=== PATIENT | female | born 1960 | race Caucasian/White ===

== ENCOUNTER 2020-03-11 12:11 | Outpatient (REF) | payer MEDICAID, SELFPAY ==
--- NOTE | 2020-03-11 12:26 | XR_ITS ---
EXAMINATION: XR HAND, LEFT CLINICAL INFORMATION: Pain in left hand COMPARISON: None TECHNIQUE: PA, lateral, and oblique views of the left hand. FINDINGS: No fracture or dislocation seen. There is deformity of the third metacarpal head with adjacent well-corticated ossific densities suggesting remote prior trauma. Mild radiocarpal joint space narrowing. There is a cyst in the mid scaphoid. XR/XR hand LT min 3V IMPRESSION: No acute osseous abnormality. Chronic appearing likely posttraumatic deformity of the third metacarpal head. Mild degenerative changes.
[2020-03-11 15:23] LABS: Anion Gap 12 (12-20); Blood Urea Nitrogen 19 mg/dL (9-16); Calcium 9.6 mg/dL (8.4-10.2); Carbon Dioxide 32 mmol/L (22-29); Chloride 100 mmol/L (96-108); Cholesterol 182 mg/dL; Estimated Glomerular Filt Rate 57; Glucose Random 88 mg/dL (60-115); HDL Cholesterol 70 mg/dL; LDL Cholesterol Calculated 90 mg/dl; Potassium 4.4 mmol/l (3.3-5.1); Sodium 140 mmol/L (135-145); Triglycerides 112 mg/dL
[2020-03-11 15:47] LABS: TSH reflex Free T4 2.49 mIU/mL (0.32-4.0)
== END 2020-03-11 12:12 | disposition home or self-care (01) ==
LOC: HO.US 12:11
PROVIDERS: PCP Nurse Practitioner; Visit Provider Emergency Medicine
DX: E03.9 Hypothyroidism, unspecified (principal); E78.2 Mixed hyperlipidemia; I10 Essential (primary) hypertension; M79.89 Other specified soft tissue disorders; M79.642 Pain in left hand
CPT/HCPCS: 73130; 80048; 80061; 84443

== ENCOUNTER → 2020-03-18 12:37 | Outpatient (BNVA) | payer MEDICAID, SELFPAY | PROVIDERS: PCP Nurse Practitioner Family; Visit Provider Internal Medicine Cardiovascular Disease | DX: I48.0 Paroxysmal atrial fibrillation (principal); I10 Essential (primary) hypertension; E05.90 Thyrotoxicosis, unspecified without thyrotoxic crisis or storm; Z79.899 Other long term (current) drug therapy | CPT/HCPCS: 93005; 99212 ==

== ENCOUNTER 2020-03-20 13:04 | Outpatient (REF) | payer MEDICAID, SELFPAY ==
--- NOTE | 2020-03-20 | US_ITS ---
EXAMINATION: US VENOUS ULTRASOUND WITH DOPPLER LOWER EXTREMITY, RIGHT CLINICAL INFORMATION: Right lower extremity swelling, fullness. Assess for occult DVT. COMPARISON: Soft tissue ultrasound right lower extremity 12/25/2019. TECHNIQUE: Ultrasound of the deep veins is performed from the hip to the calf with compression sonography and color and pulse Doppler assessment. Spectral analysis with color-flow imaging is performed. FINDINGS: There is normal venous compression and respiratory variation and augmented flow. The visualized common femoral vein, superficial femoral vein, profunda femoral vein, popliteal vein, and the trifurcation region shows no evidence of deep venous thrombosis. No popliteal fossa cyst demonstrated. No visible soft tissue mass. US/US venous duplex LE RT IMPRESSION: No DVT demonstrated in the right lower extremity.
== END 2020-03-20 13:05 | disposition home or self-care (01) ==
LOC: HO.US 13:04
DX: R22.41 Localized swelling, mass and lump, right lower limb (principal)
CPT/HCPCS: 93971

== ENCOUNTER 2020-03-26 10:27 | Outpatient (REF) | payer MEDICAID, SELFPAY ==
--- NOTE | 2020-03-26 10:31 | MM_ITS ---
EXAMINATION: MM SCREENING DIGITAL BREAST TOMOSYNTHESIS, BILATERAL CLINICAL INFORMATION: Screening. Asymptomatic. The lifetime risk of breast cancer based on the Tyrer-Cuzick Model is 8%. COMPARISON: Mammography: 03/08/2019, 02/14/2018, 02/11/2017 TECHNIQUE: Digital breast tomosynthesis is performed in both the craniocaudal and mediolateral oblique views along with computer-aided detection (CAD). Synthesized 2D images are generated from the tomosynthesis. FINDINGS: There are scattered areas of fibroglandular density (ACR BI-RADS breast composition Category b). There are no significant masses, abnormal calcifications, or other abnormalities. There is chronic bilateral nipple retraction similar to prior studies. No significant changes. MM/MM tomosynthesis screening BI IMPRESSION: No mammographic evidence of malignancy. ASSESSMENT: BI-RADS 2: Benign RECOMMENDATION: Routine annual mammography screening. This patient's information was entered into a reminder system with a target due date for their next mammogram.
== END 2020-03-26 10:28 | disposition home or self-care (01) ==
LOC: HO.MAMMO 10:27
PROVIDERS: Visit Provider Emergency Medicine
DX: Z12.31 Encounter for screening mammogram for malignant neoplasm of breast (principal)
CPT/HCPCS: 77063; 77067

== ENCOUNTER 2020-07-14 10:52 | Outpatient (REF) | payer MEDICAID, SELFPAY ==
--- NOTE | ~2020-07-14 | XR_ITS ---
EXAMINATION: XR KNEE, RIGHT CLINICAL INFORMATION: Pain COMPARISON: None TECHNIQUE: Four views of the right knee. FINDINGS: Bone alignment is normal. No fracture or dislocation is seen. There is a severe arthritis at the medial femoral tibial and patellofemoral joints with joint space narrowing and osteophyte formation. There is question of posterior fabella versus ossified intra-articular loose body. There is no suprapatellar joint effusion. XR/XR knee RT 4V IMPRESSION: Severe arthritis at the medial femoral tibial and patellofemoral joints.
== END 2020-07-14 10:53 | disposition home or self-care (01) ==
LOC: HO.XRAY 10:52
PROVIDERS: PCP Nurse Practitioner; Visit Provider Emergency Medicine
DX: M25.561 Pain in right knee (principal)
CPT/HCPCS: 73564

== ENCOUNTER → 2020-08-27 08:34 | Outpatient (BNVA) | payer MEDICAID, SELFPAY | PROVIDERS: PCP Nurse Practitioner Family; Visit Provider Nurse Practitioner Gerontology ==

== ENCOUNTER 2021-03-05 11:49 | Outpatient (REF) | payer MEDICAID, SELFPAY ==
--- NOTE | ~2021-03-05 | US_ITS ---
EXAMINATION: US RETROPERITONEAL LIMITED (RENAL ONLY) CLINICAL INFORMATION: Hematuria. Flank pain. COMPARISON: Renal ultrasound 11/21/2018. TECHNIQUE: Real-time imaging of the kidneys. FINDINGS: RIGHT KIDNEY: 10.0 x 4.3 x 5.4 cm (SAG x AP x TRV). The kidney is normal in size, contour, and echogenicity. Renal cortical thickness is normal. No calculi or focal parenchymal lesions. No hydronephrosis. LEFT KIDNEY: 9.7 x 4.6 x 4.8 cm (SAG x AP x TRV). The kidney is normal in size, contour, and echogenicity. Renal cortical thickness is normal. No calculi or focal parenchymal lesions. No hydronephrosis. US/US renal BI IMPRESSION: Unremarkable renal ultrasound..
== END 2021-03-05 11:50 | disposition home or self-care (01) ==
LOC: HO.US 11:49
PROVIDERS: PCP Nurse Practitioner; Visit Provider Nurse Practitioner
DX: R10.9 Unspecified abdominal pain (principal)
CPT/HCPCS: 76775

== ENCOUNTER 2021-03-20 09:35 | Outpatient (REF) | payer MEDICAID, SELFPAY ==
--- NOTE | ~2021-03-20 | XR_ITS ---
EXAMINATION: X-RAY KNEE STANDING BILATERAL X-RAY RIGHT KNEE LATERAL AND SUNRISE VIEW CLINICAL INFORMATION: Pain. COMPARISON: Radiograph of the right knee dated from 07/14/2020. TECHNIQUE: AP standing views of both knees. Lateral and sunrise views of the right knee. FINDINGS: No evidence of acute fractures or malalignment. There are severe tricompartmental degenerative changes in the right knee, more apparent in the medial and patellofemoral compartments manifested by joint space narrowing, subchondral and sclerosis and osteophytes. These are unchanged when compared to June. There are moderate degenerative changes in the medial compartment of the left knee. Evaluation of the patellofemoral compartment of the left knee is suboptimal in the absence of a lateral view of this knee. Small right joint effusion. XR/XR knee standing BI IMPRESSION: No acute fractures or malalignment. Severe osteoarthritis of the right knee. Moderate osteoarthritis of the left knee. Small right joint effusion.
--- NOTE | ~2021-03-20 | XR_ITS ---
EXAMINATION: X-RAY KNEE STANDING BILATERAL X-RAY RIGHT KNEE LATERAL AND SUNRISE VIEW CLINICAL INFORMATION: Pain. COMPARISON: Radiograph of the right knee dated from 07/14/2020. TECHNIQUE: AP standing views of both knees. Lateral and sunrise views of the right knee. FINDINGS: No evidence of acute fractures or malalignment. There are severe tricompartmental degenerative changes in the right knee, more apparent in the medial and patellofemoral compartments manifested by joint space narrowing, subchondral and sclerosis and osteophytes. These are unchanged when compared to June. There are moderate degenerative changes in the medial compartment of the left knee. Evaluation of the patellofemoral compartment of the left knee is suboptimal in the absence of a lateral view of this knee. Small right joint effusion. XR/XR knee RT 2V IMPRESSION: No acute fractures or malalignment. Severe osteoarthritis of the right knee. Moderate osteoarthritis of the left knee. Small right joint effusion.
== END 2021-03-20 09:36 | disposition home or self-care (01) ==
LOC: HO.HOSX 09:35
PROVIDERS: Visit Provider Orthopaedic Surgery
DX: M17.0 Bilateral primary osteoarthritis of knee (principal)
CPT/HCPCS: 20610; 73560; 73565; 99202; J1100

== ENCOUNTER → 2021-07-03 09:10 | Outpatient (BNVA) | payer MEDICAID, SELFPAY | PROVIDERS: PCP Nurse Practitioner; Visit Provider Orthopaedic Surgery | DX: M17.0 Bilateral primary osteoarthritis of knee (principal) | CPT/HCPCS: 20610; 99212; J1100 ==

== ENCOUNTER 2021-07-16 11:28 | Outpatient (REF) | payer MEDICAID, SELFPAY ==
--- NOTE | ~2021-07-16 | MM_ITS ---
EXAMINATION: MM SCREENING DIGITAL BREAST TOMOSYNTHESIS, BILATERAL CLINICAL INFORMATION: Screening. Asymptomatic. The lifetime risk of breast cancer based on the Tyrer-Cuzick Model is 9%. COMPARISON: Mammography: 03/26/2020, 03/08/2019, 02/14/2018 TECHNIQUE: Digital breast tomosynthesis is performed in both the craniocaudal and mediolateral oblique views along with computer-aided detection (CAD). Synthesized 2D images are generated from the tomosynthesis. Additional left CC and additional bilateral MLO views are provided. FINDINGS: The breasts are almost entirely fatty (ACR BI-RADS breast composition Category a). There are no significant masses, abnormal calcifications, or other abnormalities. Background stomal markings are stable. The axilla are unremarkable. There is chronic bilateral nipple retraction similar to prior studies. MM/MM tomosynthesis screening BI IMPRESSION: No mammographic evidence of malignancy. ASSESSMENT: BI-RADS 2: Benign RECOMMENDATION: Routine annual mammography screening. This patient's information was entered into a reminder system with a target due date for their next mammogram.
== END 2021-07-16 11:29 | disposition home or self-care (01) ==
LOC: HO.MAMMO 11:28
PROVIDERS: PCP Nurse Practitioner; Visit Provider Nurse Practitioner
DX: Z12.31 Encounter for screening mammogram for malignant neoplasm of breast (principal)
CPT/HCPCS: 77063; 77067

== ENCOUNTER 2022-04-29 14:21 | Outpatient (REF) | payer MEDICAID, SELFPAY ==
--- NOTE | ~2022-04-29 | CT_ITS ---
EXAMINATION: CT CHEST WITHOUT CONTRAST CLINICAL INFORMATION: Pulmonary nodule. COMPARISON: None TECHNIQUE: Multidetector volumetric CT imaging of the chest was done. Axial MIP volume rendering provided. Sagittal and coronal reformatted images were obtained. This CT examination was performed using dose optimization techniques as appropriate, variously including the following: *Automated exposure control. *Adjustment of mA and/or kV according to patient size (this includes techniques or standardized protocols for targeted exams where dose is matched to indication/reason for exam; i.e. extremities or head). *Use of iterative reconstruction technique. DLP: 158 mGy-cm FINDINGS: WEB ART DIRECTOR: Degenerative changes in the lumbosacral spine. LUNGS: Some small pulmonary nodules are present with a 5 mm pleural-based right upper lobe nodule (5:95) and a 4 mm pleural-based left lower lobe nodule posteriorly (5:423) as well as a 3 mm pleural-based nodule anteriorly (5:422). No other masses are seen. No infiltrates are seen. There is no evidence of COPD. MEDIASTINUM: Heart size is normal. No mediastinal or hilar lymphadenopathy is seen. CORONARY ARTERY CALCIFICATION: None visualized on this study. PLEURA: There is no pleural effusion. No pleural mass or thickening. AXILLA: No lymphadenopathy. UPPER ABDOMEN: Unremarkable. OSSEOUS STRUCTURES: Unremarkable. Mild degenerative changes are noted in the spine. CT/CT chest wo IV con IMPRESSION: Small pulmonary nodules as described above, the largest is 5 mm. 2017 Fleischner Society Recommendations for Lung Nodule(s): Follow-Up based on size (average of long- and short-axis diameters). Use most suspicious nodule for followup. Multiple Solid lung nodules < 6 mm: Follow up management based on most suspicious nodule. In a low-risk patient, no routine follow-up imaging is recommended. In a high-risk patient, a non-contrast Chest CT at 12 months is optional. If performed and the nodule is stable at 12 months, no further follow-up is recommended. These guidelines do not apply to patients younger than 35 years, immunocompromised patients, and patients with cancer. F/u in patients with significant comorbidities as clinically warranted. For lung cancer screening, adhere to Lung-RADS guidelines. Reference: Radiology. 2017 Oct; 284(1):228-243 Fleischner guidelines were followed.
== END 2022-04-29 14:22 | disposition home or self-care (01) ==
LOC: HO.CT 14:21
PROVIDERS: Visit Provider Registered Nurse
DX: R91.1 Solitary pulmonary nodule (principal)
CPT/HCPCS: 71250

== ENCOUNTER → 2022-07-06 13:34 | Outpatient (BNVA) | payer MEDICAID, SELFPAY | PROVIDERS: PCP Registered Nurse; Visit Provider Hospitalist | DX: J45.30 Mild persistent asthma, uncomplicated (principal); R91.8 Other nonspecific abnormal finding of lung field; Z79.899 Other long term (current) drug therapy | CPT/HCPCS: 99202 ==

== ENCOUNTER 2022-07-19 14:23 | Outpatient (REF) | payer MEDICAID, SELFPAY ==
--- NOTE | ~2022-07-19 | MM_ITS ---
EXAMINATION: MM SCREENING DIGITAL BREAST TOMOSYNTHESIS, BILATERAL CLINICAL INFORMATION: Screening. Asymptomatic. The lifetime risk of breast cancer based on the Tyrer-Cuzick Model is 10%. COMPARISON: Mammography: 07/16/2021, 03/26/2020, 03/08/2019 TECHNIQUE: Digital breast tomosynthesis is performed in both the craniocaudal and mediolateral oblique views along with computer-aided detection (CAD). Synthesized 2D images are generated from the tomosynthesis. Additional left MLO view is provided. FINDINGS: The breasts are almost entirely fatty (ACR BI-RADS breast composition Category a). Background stromal and fibroglandular densities are stable. No interval mass or architectural abnormality or developing density. There are scattered bilateral ductal secretory and some vascular calcifications. The axilla are unremarkable. There is chronic bilateral mild nipple retraction. MM/MM tomosynthesis screening BI IMPRESSION: No mammographic evidence of malignancy. ASSESSMENT: BI-RADS 2: Benign RECOMMENDATION: Routine annual mammography screening. This patient's information was entered into a reminder system with a target due date for their next mammogram.
== END 2022-07-19 14:24 | disposition home or self-care (01) ==
LOC: HO.MAMMO 14:23
PROVIDERS: PCP Registered Nurse; Visit Provider Registered Nurse
DX: Z12.31 Encounter for screening mammogram for malignant neoplasm of breast (principal)
CPT/HCPCS: 77063; 77067

== ENCOUNTER 2023-02-24 14:06 | Outpatient (REF) | payer MEDICAID, SELFPAY ==
[2023-02-24 15:42] LABS: D Dimer High Sensitivity < 150 NG/ML
[2023-02-24 15:57] LABS: Alanine Aminotransferase 21 U/L (0-31); Albumin Level 4.3 g/dL (3.5-5.0); Alkaline Phosphatase 120 U/L (39-117); Anion Gap 14 (12-20); Aspartate Amino Transferase 18 U/L (5-31); Bilirubin Total 0.5 mg/dL (0.0-1.0); Blood Urea Nitrogen 15 mg/dL (9-16); Calcium 9.7 mg/dL (8.4-10.2); Carbon Dioxide 28 mmol/L (22-29); Chloride 102 mmol/L (96-108); Estimated Glomerular Filt Rate 57; Glucose Random 90 mg/dL (60-115); Potassium 3.8 mmol/L (3.3-5.1); Sodium 140 mmol/L (135-145); Total Protein 7.7 g/dL (6.5-8.0)
[2023-02-24 16:13] LABS: TSH reflex Free T4 0.78 uIU/mL (0.32-4.0)
== END 2023-02-24 14:07 | disposition home or self-care (01) ==
LOC: HO.LAB 14:06
PROVIDERS: PCP Registered Nurse; Visit Provider Registered Nurse
DX: R06.02 Shortness of breath (principal); E03.8 Other specified hypothyroidism; R00.2 Palpitations; Z00.00 Encounter for general adult medical examination without abnormal findings
CPT/HCPCS: 36415; 80053; 84443; 85379; 93005; 99212

== ENCOUNTER 2023-02-24 14:24 | Outpatient (AMB) | payer MEDICAID, SELFPAY ==
--- NOTE | 2023-02-24 14:38 | MHC.OFFVIS ---
Intake Vital Signs 02/24/23 14:39 Height 4 ft 10 in Weight 187 lb 6.287 oz BMI 39.2 BP 124/76 Blood Pressure Location Lt brachial Position Sitting Pulse 74 Intake Visit Reasons: follow up Intake Note: Overdue follow-up was in the ED palpation nausea vomiting 02/02 Electronic Integrated Systems Mechanic Required: No Allergies ENVIRONMENTAL Allergy (Unknown, Uncoded 07/06/22 13:41) ITCHY EYES Medication List - Last Reconciled 02/24/23 by Fabrizio Swift MD albuterol sulfate 90 mcg/actuation 2 puffs inhalation Q6H PRN albuterol sulfate 5 mg inhalation Q6H amlodipine-valsartan 5-160 mg 1 tab PO DAILY atorvastatin 40 mg PO BEDTIME bupropion HCl 300 mg PO QAM calcium citrate 200 mg PO DAILY celecoxib 200 mg PO DAILY cetirizine 10 mg PO DAILY cholecalciferol (vitamin D3) 25 mcg PO DAILY fluticasone propionate 100 mcg/actuation (Flovent Diskus) 1 inh inhalation BID levothyroxine 137 mcg PO DAILY metoprolol succinate ER 50 mg PO DAILY omeprazole 20 mg PO DAILY ondansetron HCl 4 mg PO Q8H trazodone 100 mg PO BEDTIME PRN HPI HPI Comments History of Present Illness Details Nazia comes after a long gap. Patient comes for urgent visit as she recently started having symptoms of palpitation. She had recently presented to [facility] with 2 days of palpitation followed by 1 day of dizziness and vomiting. She subsequently was seen in [facility] ED and then sent home. No obvious abnormalities were found. Patient since then has had no recurrent palpitations. She is concerned about recurrent atrial fibrillation. She is currently taking a blood pressure medications. She says she has not seen a primary care physician a long time. [facility] Medical History Pulmonary nodules Asthma Postablative hypothyroidism Osteopenia Graves disease Paroxysmal atrial fibrillation HTN (hypertension) Hyperlipidemia Obesity Surgical History Hx of mammogram Family History Father No problems noted. Mother Diabetes Social History Household Members: None Current occupational status: disabled Review of Systems Const Denies chills, Denies fatigue, Denies fever(s), Denies frequent falls, Denies weakness, Denies weight gain and Denies weight loss ENT Denies dizziness Card Denies chest pain, Denies leg edema, Denies lightheadedness, Denies palpitations, Denies dyspnea, Denies dyspnea on exertion, Denies orthopnea and Denies other (loss of consciousness) Resp Denies cough, Denies dyspnea and Denies dyspnea on exertion GI Denies hematochezia and Denies change in stool character Musc Denies abnormal gait, Denies muscle weakness, Denies numbness, Denies radiating pain into limb and Denies tingling Neuro Denies abnormal gait, Denies dizziness, Denies frequent falls, Denies numbness, Denies tingling and Denies weakness Endo Denies fatigue and Denies palpitations Physical Exam Vital Signs: Last Vital Signs Pulse 74 02/24/23 14:39 BP 124/76 02/24/23 14:39 BMI result Body Mass Index 39.2 Const General: cooperative, comfortable, no acute distress, alert and awake Nutritional Appearance: obese Orientation/consciousness: patient oriented x3 Limitations: no limitations HEENT Head: Yes normal to inspection, Yes normocephalic and Yes atraumatic Eyes General: appearance normal, both eyes and all related structures Neck Neck: Yes trachea midline, Yes supple and Yes no JVD Chest Chest palpation & inspection: normal inspection of the chest Resp Effort & Inspection: normal respiratory effort Auscultation: clear to auscultation bilaterally Cardio Palpation: normal PMI Rate: regular rate Rhythm: regular rhythm Heart sounds: S1 normal heart sound present and S2 normal heart sound present GI Inspection: Yes normal to inspection Skin General skin exam: no rashes or lesions noted and dry skin Neuro General: patient oriented x3 and no focal motor deficits Extrem General: Yes no clubbing, cyanosis or edema Psych Appearance: grossly normal Office Procedures EKG Details: EKG shows normal sinus rhythm with nonspecific ST abnormality at 74 beats per minute [id number], Complete Assessment & Plan Assessment & Plan (1) Palpitations: Code(s): R00.2 - Palpitations Plan: Patient with recent symptoms of palpitation which are more suggestive of extra systoles rather than atrial fibrillation. However she is very will bothered about it given her prior history of atrial fibrillation although this was in the setting of thyrotoxicosis. Since then her thyroid is been within normal limits as she has done well. She is currently on metoprolol therapy. Will obtain a 30 day event monitor to assess further for arrhythmias and presence of atrial fibrillation as this may change her treatment options. Will also obtain echocardiogram to evaluate for LV structure, size and biatrial chamber size. Will follow up in the clinic in 2 months time, sooner p.r.n.. Thank you for allowing me to partake in her care Medications: Changed From levothyroxine 112 mcg PO DAILY 30 tabs 0RF To levothyroxine 137 mcg PO DAILY Coding Level of Care Code Est Pt Level 3 (65320) Diagnoses Palpitations R00.2 CPT Codes EKG - CPT: 60651-[id number], Complete ([id number])
[2023-02-24 14:39] VITALS: BP 124/76; PULSE 74; BMI 39.2
== END 2023-02-24 15:04 | disposition home or self-care (01) ==
PROVIDERS: PCP Registered Nurse; Visit Provider Internal Medicine Cardiovascular Disease
DX: R00.2 Palpitations (principal)
CPT/HCPCS: 93010; 99213

== ENCOUNTER → 2023-03-21 13:26 | Outpatient (REF) | payer MEDICAID, SELFPAY ==
--- NOTE | 2023-03-21 13:28 | CA_ITS ---
Transthoracic Echocardiogram Patient (Last, First, Middle): Nazia Garcia M Gender: Female Date of : 1960 Age: 62 Procedure Date: 03/21/2023 Procedure Type: Transthoracic Echocardiogram Location: OP Height: 147.32 cm Weight: 81.65 kg BSA: 1.74 m2 Heart Rate: bpm BP: 118 / 70 mmHg Concrete Craftsman: CORY Referring MD: Fabrizio Swift MD Symptoms: R00.2 - Palpitations Study Quality: Adequate ECG Rhythm: Sinus Conclusions: - The left ventricular systolic function is normal. The calculated ejection fraction is 64% by biplane method. - No obvious valvular pathology seen on this study. Findings Left Ventricle Normal left ventricular cavity size. There is normal left ventricular wall thickness. The left ventricular systolic function is normal. The calculated ejection fraction is 64% by biplane method. There is no evidence of regional wall motion abnormalities. LV peak GLS -16%. Right Ventricle Normal right ventricular cavity size and systolic function. Atria The left atrium is mildly dilated. The right atrium is normal in size. Aortic Valve There is a normal trileaflet aortic valve. There is no aortic valve stenosis. There is no aortic valve regurgitation. Mitral Valve The mitral valve appears normal. There is trace mitral valve regurgitation. There is no mitral valve stenosis. Pulmonic Valve The pulmonic valve is likely normal. Tricuspid Valve There is trace tricuspid valve regurgitation. There is no evidence of pulmonary hypertension. Great Vessels The asc aorta and aortic arch are normal in size. Small plaque is seen in the sino tubular ridge. Venous The inferior vena cava is normal in size and collapses greater than 50% with inspiration. Pericardium/Pleural There is no evidence of pericardial effusion. Prior Study Comparison No significant change compared to prior study dated: 12/23/2015. Recommendations, Care & Conclusions No obvious valvular pathology seen on this study. Measurements 2D Linear Measurements IVSd: 0.78 0.6-0.9/0.6-1.0 cm LVIDd: 4.58 3.9-5.3/4.2-5.9 cm LVIDd Index: 2.63 2.4-3.2/2.2-3.1 cm/m2 LVIDs: 3.32 2.0-3.6 cm LVPWd: 0.78 0.7-1.1 cm LA Diam: 3.60 2.7-3.8/3.0-4.0 cm LAIDs Index: 2.07 1.5-2.3 cm/m2 LV Mass: 140.82 67-162/88-224 g LV Mass Index: 80.93 43-95/49-115 g/m2 LVOT Diam: 1.90 3.0+(-)1.3 cm 2D Systolic Function EF 4C: 62.00 >55% EF 2C: 64.90 >55% EF BiP: 64.40 >55% Mitral Valve MV Pk E: 0.55 MV PK A: 0.75 MV Decel Time: 297.00 E/A: 0.70 E'Lateral: 12.00 E'Medial: 6.74 E/E' Med: 8.10 E/E' Lat: 4.60 PHT: 87.00 MVA PHT: 2.53 Decel [place]: 1.85 Aortic Valve AoV Pk Manny: 1.59 AoV Mn Manny: 1.04 AoV VTI: 0.37 AoV Pk Grad: 10.00 Aov Mn Grad: 5.00 JOSÉ Cont.VTI: 2.27 LVOT LVOT Pk Manny: 1.24 LVOT Mn Manny: 0.83 LVOT VTI: 0.29 LVOT Pk Grad: 6.00 LVOT Mn Grad: 3.00 LVOT Diam: 1.90 LVOT Area: 2.84 Diastolic Function MV Pk E: 0.55 MV Pk A: 0.75 E/A: 0.70 E'Medial: 6.74 E/E' Med: 8.10 E' Laterial: 12.00 E/E' Lat: 4.60 Right Ventricle TAPSE (mm): 2.12 TVS' Manny: 9.90 Tricuspid Valve TR Pk Manny: 2.38 TR Pk Grad: 23.00 RA Press: 3.00 RVSP: 26.00 Great Vessels Aorta Sinus of Valsalva: 2.71 2.0-3.[address] [place]: 2.02 1.7-3.4 cm Ao Asc: 3.00 2.1-3.4 cm Ao Arch: 2.80 Updated in Other Vendor System with Status of Final Jarek Fuentes MD electronically signed on 03/21/2023 4:14:37 PM with status of Final
== END ==
LOC: HO.CARD 13:26
PROVIDERS: PCP Registered Nurse; Visit Provider Internal Medicine Cardiovascular Disease
DX: R00.2 Palpitations (principal)
CPT/HCPCS: 93306; 93356

== ENCOUNTER → 2023-03-21 13:26 | Outpatient (REF) | payer MEDICAID, SELFPAY | LOC: HO.CARD 13:26 | PROVIDERS: PCP Registered Nurse; Visit Provider Internal Medicine Cardiovascular Disease | DX: Z13.89 Encounter for screening for other disorder (principal) ==

== ENCOUNTER → 2023-03-21 13:28 | Outpatient (BNV) | payer MEDICAID, SELFPAY | PROVIDERS: PCP Registered Nurse; Visit Provider Internal Medicine | DX: R94.31 Abnormal electrocardiogram [ECG] [EKG] (principal) | CPT/HCPCS: 93306 ==

== ENCOUNTER → 2023-03-29 12:12 | Outpatient (REF) | payer MEDICAID, SELFPAY ==
--- NOTE | 2023-03-29 12:15 | HM_ITS ---
* Total monitoring time 7 days. * Underlying rhythm is sinus. Average ventricular rate 62/min. Range 52- 94/Min. * Rare supraventricular and ventricular ectopy. * No sustained arrhythmias. * No significant pauses or AV blocks. * No patient markers or events in diary. MTDD
== END ==
LOC: HO.CARD 12:12
PROVIDERS: PCP Registered Nurse; Visit Provider Internal Medicine Cardiovascular Disease
DX: R00.2 Palpitations (principal)
CPT/HCPCS: 93242

== ENCOUNTER → 2023-03-29 12:15 | Outpatient (BNV) | payer MEDICAID, SELFPAY | PROVIDERS: PCP Registered Nurse; Visit Provider Internal Medicine | DX: R00.2 Palpitations (principal) | CPT/HCPCS: 93244 ==

== ENCOUNTER 2023-04-14 12:54 | Outpatient (REF) | payer MEDICAID, SELFPAY ==
--- NOTE | ~2023-04-14 | CT_ITS ---
EXAMINATION: CT CHEST WITHOUT CONTRAST CLINICAL INFORMATION: Other nonspecific abnormal finding of lung field COMPARISON: CT chest 04/29/2022. TECHNIQUE: Multidetector volumetric CT imaging of the chest was done. Axial MIP volume rendering provided. Sagittal and coronal reformatted images were obtained. This CT examination was performed using dose optimization techniques as appropriate, variously including the following: *Automated exposure control. *Adjustment of mA and/or kV according to patient size (this includes techniques or standardized protocols for targeted exams where dose is matched to indication/reason for exam; i.e. extremities or head). *Use of iterative reconstruction technique. DLP: 146 mGy-cm FINDINGS: SYSTEM TRAINER: Degenerative changes in the lumbosacral spine. LUNGS: Some predominantly pleural-based pulmonary nodules are again seen with the largest a 5 mm pleural-based right upper lobe nodule (5:328 compare prior 5:295) and a 4 mm pleural-based left lower lobe nodule posteriorly (5:441 compare prior 5:423) as well as a 3 mm pleural-based left lower lobe nodule anteriorly (5:458 compare prior 5:422). A few other even smaller nodule are seen that are unchanged. No infiltrates are seen. There is no evidence of COPD. MEDIASTINUM: Heart size is normal. No mediastinal or hilar lymphadenopathy is seen. CORONARY ARTERY CALCIFICATION: None visualized on this study. PLEURA: There is no pleural effusion. No pleural mass or thickening. AXILLA: No lymphadenopathy. UPPER ABDOMEN: Unremarkable. OSSEOUS STRUCTURES: Unremarkable. Mild degenerative changes are noted in the spine. CT/CT chest wo IV con IMPRESSION: 1. Small pulmonary nodules are unchanged. No new lung nodules are seen. 2. No evidence of COPD. 3. Degenerative changes in the spine. 4. Lung RADS category: 2. Reference: Radiology. 2017 Oct; 284(1):228-243 Fleischner guidelines were followed.
== END 2023-04-14 12:55 | disposition home or self-care (01) ==
LOC: HO.CT 12:54
PROVIDERS: PCP Registered Nurse; Visit Provider Hospitalist
DX: R91.8 Other nonspecific abnormal finding of lung field (principal)
CPT/HCPCS: 71250

== ENCOUNTER 2023-05-03 13:56 | Outpatient (AMB) | payer MEDICAID, SELFPAY ==
--- NOTE | 2023-05-03 14:37 | A.OFFVIS_ITS ---
Intake Vital Signs 05/03/23 14:38 Height 4 ft 10 in Weight 188 lb 11.451 oz BMI 39.4 BP 110/60 Blood Pressure Location Lt brachial Position Sitting Pulse 64 Pulse Source Pulse Oximeter Intake Visit Reasons: 2M Monitor & Echo (NS)/Confirmed Intake Note: 2 mnth f/up pt its feeling fine Technical Project Lead Required: No Accompanied by: Self / Same As Patient Allergies ENVIRONMENTAL Allergy (Unknown, Uncoded 07/06/22 13:41) ITCHY EYES Medication List - Last Reconciled 05/03/23 by Jenn Escudero, [employer] VP-C albuterol sulfate 90 mcg/actuation 2 puffs inhalation Q6H PRN albuterol sulfate 5 mg inhalation Q6H amlodipine-valsartan 5-160 mg 1 tab PO DAILY atorvastatin 40 mg PO BEDTIME bupropion HCl 300 mg PO QAM calcium citrate 200 mg PO DAILY celecoxib 200 mg PO DAILY cetirizine 10 mg PO DAILY cholecalciferol (vitamin D3) 25 mcg PO DAILY fluticasone propionate 100 mcg/actuation (Flovent Diskus) 1 inh inhalation BID levothyroxine 137 mcg PO DAILY metoprolol succinate ER 50 mg PO DAILY omeprazole 20 mg PO DAILY ondansetron HCl 4 mg PO Q8H trazodone 100 mg PO BEDTIME PRN HPI 2M Monitor & Echo (NS)/Confirmed HPI Details Shasha is a 62-year-old female with past medical history of hypertension, hyperlipidemia, atrial fibrillation during thyrotoxicosis who was recently reported heart palpitations and underwent a echocardiogram and Holter monitor and now presents for follow-up. Today she reports that overall her palpitations have lessened since last visit. She will have intermittent episodes where her heart is skipping beats. She tells me she was under high stress with the loss of her father and her sister. She is emotionally feeling better at this time. She denies any chest discomfort at rest or with activity. No shortness of breath, presyncope, syncope, PND, orthopnea or edema. Plans to lose weight over the next year. [facility] Medical History Pulmonary nodules Asthma Postablative hypothyroidism Osteopenia Graves disease Paroxysmal atrial fibrillation HTN (hypertension) Hyperlipidemia Obesity Surgical History Hx of mammogram Family History Father No problems noted. Mother Diabetes Social History Household Members: None Current occupational status: disabled Review of Systems Const All systems reviewed & are unremarkable except as noted in HPI and below Denies chills, Denies fever(s), Denies frequent falls, Denies weakness, Denies weight gain and Denies weight loss ENT Denies dizziness Card Details: less heart palpitations Denies chest pain, Denies leg edema, Denies lightheadedness, Denies palpitations, Denies dyspnea and Denies dyspnea on exertion Resp Denies cough, Denies dyspnea and Denies dyspnea on exertion GI Denies hematochezia Musc Denies abnormal gait, Denies muscle weakness, Denies numbness, Denies radiating pain into limb and Denies tingling Neuro Denies abnormal gait, Denies dizziness, Denies frequent falls, Denies numbness, Denies tingling and Denies weakness Endo Denies palpitations Physical Exam Vital Signs: Last Vital Signs Pulse 64 05/03/23 14:38 BP 110/60 05/03/23 14:38 BMI result Body Mass Index 39.4 Const General: cooperative, healthy appearing, comfortable and no acute distress Orientation/consciousness: patient oriented x3 Neck Neck: Yes normal visual inspection and Yes no JVD Resp Effort & Inspection: normal respiratory effort Auscultation: clear to auscultation bilaterally, no crackles, no rales, no rhonchi and no wheezes Cardio Jugular venous distension: no JVD Rate: regular rate Rhythm: regular rhythm Heart sounds: S1 normal heart sound present, S2 normal heart sound present, no murmurs and no rubs Neuro General: patient oriented x3 Extrem General: Yes normal to inspection Psych Appearance: grossly normal Mental Status: mental status grossly normal Speech and movement: Normal speech and movement present Office Procedures Cardiac Device Check Cardiac Device Check Details: entered in error - DO NOT BILL Additional procedure code (CPT) needed Assessment & Plan Assessment & Plan (1) Palpitations: Code(s): R00.2 - Palpitations Plan: Report of recent heart palpitations, skipping, causing her concern. History of having atrial fibrillation in the setting of thyroid toxicosis. No documented recurrent atrial fibrillation since that time. Labs done 02/24/2023 showed TSH 0.78. EKG done on last visit 02/24/2023 showing sinus rhythm with nonspecific ST abnormality, rate 74. Echocardiogram done 03/21/2023 showing EF 64%, no regional wall motion abnormalities or valve abnormalities. Holter monitor done on 03/29/2023 for 7 days shows sinus rhythm with average heart rate 62, heart rate range 52 to 94, rare SVE. All test results reviewed with her. At this point she reports her palpitations have lessened and if she is feeling better overall. Offered reassurance there is no atrial fibrillation. No med changes made. Continue metoprolol. Cardiology follow-up in 1 year, sooner if needed. (2) Paroxysmal atrial fibrillation: Code(s): I48.0 - Paroxysmal atrial fibrillation Plan: As above. No documented recurrent (3) HTN (hypertension): Code(s): I10 - Essential (primary) hypertension Plan: Well controlled at present time Plan Time spent on chart review, documentation, interview and assessment Coding Level of Care Code Est Pt Level 3 (96601) Diagnoses Palpitations R00.2 Paroxysmal atrial fibrillation I48.0 HTN (hypertension) I10 Time Spent (min) 24
[2023-05-03 14:38] VITALS: BP 110/60; PULSE 64; BMI 39.4
== END 2023-05-03 14:59 | disposition home or self-care (01) ==
PROVIDERS: PCP Registered Nurse; Visit Provider Nurse Practitioner Family
DX: R00.2 Palpitations (principal); I48.0 Paroxysmal atrial fibrillation; I10 Essential (primary) hypertension
CPT/HCPCS: 99213

== ENCOUNTER → 2023-05-03 13:56 | Outpatient (BNVA) | payer MEDICAID, SELFPAY | PROVIDERS: PCP Registered Nurse; Visit Provider Nurse Practitioner Family | DX: R00.2 Palpitations (principal); I48.0 Paroxysmal atrial fibrillation; I10 Essential (primary) hypertension; Z79.899 Other long term (current) drug therapy | CPT/HCPCS: 99212 ==

== ENCOUNTER 2023-05-10 13:44 | Outpatient (AMB) | payer MEDICAID, SELFPAY ==
--- NOTE | 2023-05-10 14:02 | A.OFFVIS_ITS ---
Intake Vital Signs 05/10/23 14:03 Height 4 ft 10 in Weight 170 lb BMI 35.5 Pulse 67 Pulse Source Pulse Oximeter Pulse Oximetry (%) 94 Oxygen Delivery Method Room Air Intake Visit Reasons: pulmonary nodule Assistant Manager Pt Required: No Allergies ENVIRONMENTAL Allergy (Unknown, Uncoded 05/10/23 14:04) ITCHY EYES HPI HPI Comments History of Present Illness Details The patient is a 61 year woman who was noted to have an abnormal CT scan of the chest. She denies any ongoing respiratory symptoms. Apparent the patient did smoke cigarettes up some point in her life just transient for few years mainly when she was in has going since she stopped. An issue also had some exposure to recreational drug such as crack cocaine which she used for period time. Respiratory brock patient has been doing well denies any significant shortness breath or cough. She did have a CT scan of the chest sometime in April 2022 that was personally by me. She had multiple pulmonary nodules larger was measuring 5 mm in size. The rest the lung parenchyma appeared to be normal. No significant lymphadenopathy and there are no other concerns for my evaluation. Therefore, I tried to reassure the patient that these nodules are likely to be benign but close monitoring is warranted. Will follow the standard guidelines which recommend a CT scan [address] scan for any nodules are less than 6 mm in size. If however the patient started developing worsening symptoms or any new concerning symptoms she can always call and we can reassess as far as the timing of her next CT scan. She does have a history of asthma. She has in Flovent inhaler in addition to a rescue inhaler that she does not require. A therefore, will follow-up in April [address] scan to further evaluate her pulmonary nodules. 05/10/2023 the patient is here for a pulmonary follow-up visit. Overall she is feeling better now. A she did have respiratory illness over the fall. Now feeling better. The patient continues use the Flovent. At this point she is not requiring the rescue inhaler frequently, less than twice a week. She did have recent CT scan of the chest which I personally reviewed and compared to her previous 1. The patient does have pulmonary nodules but is stable compared to last year's. Will follow-up 1 more year to make sure that the nodules are stable for at least 2 years and then after that no further follow-up only serial follow-up as well and otherwise the patient is without any other complaints. [facility] Medical History Pulmonary nodules Asthma Postablative hypothyroidism Osteopenia Graves disease Paroxysmal atrial fibrillation HTN (hypertension) Hyperlipidemia Obesity Surgical History Hx of mammogram Family History Father No problems noted. Mother Diabetes Social History (Updated 05/10/23 @ 14:05 by LIO Pinedo) Household Members: None Patient Tobacco Use Status: Current everyday Tobacco user Tobacco use type: Cigarette Years Smoked: Since 16 Years Old Current occupational status: disabled Review of Systems Const Denies fatigue, Denies weight gain and Denies weight loss Eyes Denies blurry vision ENT Denies dysphagia and Denies sore throat Card Denies palpitations and Denies dyspnea Resp Denies cough and Denies dyspnea GI Denies constipation, Denies dysphagia and Denies diarrhea Denies urinary frequency and Denies dysuria Musc Denies muscle cramps, Denies muscle weakness, Denies numbness and Denies tingling Neuro Denies burning sensations, Denies numbness, Denies tingling and Denies tremor(s) Psych Reports abnormal sleep pattern and Reports depression (sees pmhnp) Endo Denies fatigue and Denies palpitations Physical Exam Vital Signs: Last Vital Signs Pulse 67 05/10/23 14:03 Pulse Ox 94 05/10/23 14:03 Oxygen Delivery Method Room Air 05/10/23 14:03 BMI result Body Mass Index 35.5 Const General: comfortable HEENT Head: Yes normocephalic Neck Neck: Yes supple Chest Chest palpation & inspection: normal inspection of the chest Resp Effort & Inspection: normal respiratory effort Auscultation: clear to auscultation bilaterally Cardio Rate: regular rate Rhythm: regular rhythm Heart sounds: S1 normal heart sound present and S2 normal heart sound present GI Palpation (GI): Soft to palpation Skin General skin exam: no rashes or lesions noted Extrem General: Yes no clubbing, cyanosis or edema Results Reviewed Results Reviewed: [address] [address] [address] Scan Report Signed Patient: Nazia Garcia MR#: [id number] : 1960 Acct:[id number] Age/Sex: 62 / F ADM Date: 04/14/23 Loc: HO.CT Attending Dr: Avtar Jimenez MD Ordering Physician: Avtar Jimenez MD Date of Service: 04/14/23 Procedure(s): CT chest wo IV con Accession Number(s): [id number] cc: Jia Greenwood; Avtar Jimenez MD~ EXAMINATION: CT CHEST WITHOUT CONTRAST CLINICAL INFORMATION: Other nonspecific abnormal finding of lung field COMPARISON: CT chest 04/29/2022. TECHNIQUE: Multidetector volumetric CT imaging of the chest was done. Axial MIP volume rendering provided. Sagittal and coronal reformatted images were obtained. This CT examination was performed using dose optimization techniques as appropriate, variously including the following: *Automated exposure control. *Adjustment of mA and/or kV according to patient size (this includes techniques or standardized protocols for targeted exams where dose is matched to indication/reason for exam; i.e. extremities or head). *Use of iterative reconstruction technique. DLP: 146 mGy-cm FINDINGS: DESIGN INTERN: Degenerative changes in the lumbosacral spine. LUNGS: Some predominantly pleural-based pulmonary nodules are again seen with the largest a 5 mm pleural-based right upper lobe nodule (5:328 compare prior 5:295) and a 4 mm pleural-based left lower lobe nodule posteriorly (5:441 compare prior 5:423) as well as a 3 mm pleural-based left lower lobe nodule anteriorly (5:458 compare prior 5:422). A few other even smaller nodule are seen that are unchanged. No infiltrates are seen. There is no evidence of COPD. MEDIASTINUM: Heart size is normal. No mediastinal or hilar lymphadenopathy is seen. CORONARY ARTERY CALCIFICATION: None visualized on this study. PLEURA: There is no pleural effusion. No pleural mass or thickening. AXILLA: No lymphadenopathy. UPPER ABDOMEN: Unremarkable. OSSEOUS STRUCTURES: Unremarkable. Mild degenerative changes are noted in the spine. CT/CT chest wo IV con IMPRESSION: 1. Small pulmonary nodules are unchanged. No new lung nodules are seen. 2. No evidence of COPD. 3. Degenerative changes in the spine. 4. Lung RADS category: 2. Reference: Radiology. 2017 Oct; 284(1):228-243 Fleischner guidelines were followed. Dictated By: Kris Panda MD Signed By: <Electronically signed by Kris Panda MD in OV> 05/03/23 1221 DD/ 1317 TD/TT: Candy Separator Hard: [facility] Assessment & Plan Assessment & Plan (1) Asthma: Code(s): J45.909 - Unspecified asthma, uncomplicated Qualifiers: Asthma complication type: uncomplicated Asthma persistence: persistent Asthma severity: mild Qualified Code(s): J45.30 - Mild persistent asthma, uncomplicated (2) Pulmonary nodules: Code(s): R91.8 - Other nonspecific abnormal finding of lung field Plan continue Flovent RACHELLE as needed CT chest 1 yr F/U after her CT chest Orders: Orders CT chest wo IV con 364 Days R91.8 - Other nonspecific abnormal finding of lung field Coding Level of Care Code Est Pt Level 4 (29562) Diagnoses Mild persistent asthma without complication J45.30 Asthma complication type: uncomplicated Asthma persistence: persistent Asthma severity: mild Pulmonary nodules R91.8 Time Spent (min) 17
[2023-05-10 14:03] VITALS: PULSE 67; O2SAT 94; BMI 35.5
== END 2023-05-10 14:27 | disposition home or self-care (01) ==
PROVIDERS: PCP Registered Nurse; Referring Provider Registered Nurse; Visit Provider Hospitalist
DX: J45.30 Mild persistent asthma, uncomplicated (principal); R91.8 Other nonspecific abnormal finding of lung field
CPT/HCPCS: 99214

== ENCOUNTER → 2023-05-10 13:44 | Outpatient (BNVA) | payer MEDICAID, SELFPAY | PROVIDERS: PCP Registered Nurse; Visit Provider Hospitalist | DX: J45.30 Mild persistent asthma, uncomplicated (principal); R91.8 Other nonspecific abnormal finding of lung field | CPT/HCPCS: 99212 ==

== ENCOUNTER 2023-06-21 12:32 | Outpatient (REF) | payer MEDICAID, SELFPAY ==
[2023-06-21 13:39] LABS: Estimated Average Glucose 103 mg/dL; Hemoglobin A1c % 5.2 % (<6.0)
[2023-06-21 14:12] LABS: Alanine Aminotransferase 26 U/L (0-31); Albumin Level 4.2 g/dL (3.5-5.0); Alkaline Phosphatase 114 U/L (39-117); Aspartate Amino Transferase 17 U/L (5-31); Bilirubin Direct 0.3 mg/dL (0.0-0.5); Bilirubin Total 0.7 mg/dL (0.0-1.0); Gamma Glutamyl Transpeptidase 31 U/L (7-33); Iron 91 mcg/dL (30-160); Percent Iron Saturation 37 % (15-50); Total Iron Binding Capacity 246 mcg/dL (228-428); Total Protein 7.4 g/dL (6.5-8.0); Unsaturated Iron Binding 155 ug/dL
[2023-06-21 14:18] LABS: Ferritin 99 ng/mL (10-250)
== END 2023-06-21 12:33 | disposition home or self-care (01) ==
LOC: HO.HHCL 12:32
PROVIDERS: Visit Provider Registered Nurse
DX: R74.8 Abnormal levels of other serum enzymes (principal); G25.81 Restless legs syndrome; E66.9 Obesity, unspecified
CPT/HCPCS: 36415; 80076; 82728; 82977; 83036; 83540

== ENCOUNTER 2023-06-27 11:43 | Outpatient (REF) | payer MEDICAID, SELFPAY ==
--- NOTE | ~2023-06-27 | US_ITS ---
EXAMINATION: US ABDOMEN LIMITED CLINICAL INFORMATION: Elevated alkaline phosphatase. COMPARISON: Renal ultrasound 03/05/2021 and 11/21/2018. TECHNIQUE: Real-time imaging of the right upper quadrant abdominal viscera. Limited visualization due to bowel gas. FINDINGS: PANCREAS: Limited visualization of pancreatic tail and head. Imaged portion of pancreatic body is unremarkable. LIVER: Increased hepatic parenchymal heterogeneity and echogenicity could be associated with hepatocellular disease/hepatic steatosis and substantially limits visualization. Correlation with liver function tests and clinical exam recommended to determine further management. GALLBLADDER: No gallbladder wall thickening. A 4 mm gallbladder polyp. Gallbladder is suboptimally distended, limiting evaluation. COMMON BILE DUCT: Normal in caliber measuring 0.3 cm in diameter. RIGHT KIDNEY: No hydronephrosis. No renal calculi. Limited visualization. The kidney measures 9.3 cm in maximum dimension. FREE FLUID: None. US/US abdomen limited IMPRESSION: 1. Increased hepatic parenchymal heterogeneity and echogenicity could be associated with hepatocellular disease/hepatic steatosis and substantially limits visualization. Correlation with liver function tests and clinical exam recommended to determine further management. 2. A 4 mm gallbladder polyp. Gallbladder is suboptimally distended, limiting evaluation.
--- NOTE | ~2023-06-27 | US_ITS ---
EXAMINATION: US EXTREMITY, NONVASCULAR CLINICAL INFORMATION: Subcutaneous mass COMPARISON: None available. TECHNIQUE: Grayscale and color views of the soft tissues of the area concern in the left lower extremity were obtained. FINDINGS: A 2.9 x 2.1 x 0.9 cm avascular circumscribed lesion corresponding to the area of palpable concern which may reflect a lipomatous lesion. US/US extremity nonvascular IMPRESSION: A 2.9 cm avascular circumscribed lesion corresponding to the area of palpable concern which may reflect a lipomatous lesion.
== END 2023-06-27 11:44 | disposition home or self-care (01) ==
LOC: HO.US 11:43
PROVIDERS: Visit Provider Registered Nurse
DX: R74.8 Abnormal levels of other serum enzymes (principal)
CPT/HCPCS: 76705; 76882

== ENCOUNTER 2023-07-22 12:56 | Outpatient (REF) | payer MEDICAID, SELFPAY ==
--- NOTE | ~2023-07-22 | MM_ITS ---
EXAMINATION: MM SCREENING DIGITAL BREAST TOMOSYNTHESIS, BILATERAL CLINICAL INFORMATION: Screening. Asymptomatic. COMPARISON: Mammography: 07/19/2022, 07/16/2021, 03/26/2020, 03/08/2019 TECHNIQUE: Digital breast tomosynthesis is performed in both the craniocaudal and mediolateral oblique views along with computer-aided detection (CAD). Synthesized 2D images are generated from the tomosynthesis. 3-D left cleavage view, as well as an additional left MLO with nipple in profile were also provided. FINDINGS: The breasts are almost entirely fatty (ACR BI-RADS breast composition Category a). Redemonstration of chronic bilateral mild nipple retraction. This is unchanged. There are a few scattered secretory calcifications in both breasts, benign. No developing masses, developing regions of architectural distortion, or suspicious grouped calcifications in either breast. The parenchymal pattern is stable from prior exams. No skin or axillary abnormalities. MM/MM tomosynthesis screening BI IMPRESSION: No mammographic evidence of malignancy. ASSESSMENT: BI-RADS BI-RADS 2 - Benign Findings RECOMMENDATION: Routine annual mammography screening. 1 year F/U This examination should not preclude the clinical evaluation of a suspicious palpable abnormality. This patient's information was entered into a reminder system with a target due date for their next mammogram.
== END 2023-07-22 12:57 | disposition home or self-care (01) ==
LOC: HO.MAMMO 12:56
PROVIDERS: PCP Registered Nurse; Visit Provider Registered Nurse
DX: Z12.31 Encounter for screening mammogram for malignant neoplasm of breast (principal)
CPT/HCPCS: 77063; 77067

== ENCOUNTER → 2023-07-22 13:30 | Outpatient (BNV) | payer MEDICAID, SELFPAY | PROVIDERS: PCP Registered Nurse; Visit Provider Radiology Diagnostic Radiology | DX: Z12.31 Encounter for screening mammogram for malignant neoplasm of breast (principal) | CPT/HCPCS: 77063; 77067 ==

== ENCOUNTER 2024-03-21 11:48 | Outpatient (REF) | payer MEDICAID, SELFPAY ==
[2024-03-21 13:26] LABS: MANUAL DIFF FLAG NO
[2024-03-21 13:34] LABS: Basophils Percent Auto 0.5 % (0-2); Eosinophils Absolute Auto 0.3 X10*3/uL (0.0-0.4); Hematocrit 47.5 % (37.0-47.0); Hemoglobin 15.4 g/dl (12.0-16.0); Imm Gran Abs Auto 0.03 X10*3/uL (0.00-0.03); Imm Gran Pct Auto 0.3 % (0.0-0.4); Lymphocytes Absolute Auto 2.1 X10*3/uL (1.2-4.9); Lymphocytes Percent Auto 24.8 % (20-40); Mean Corpuscular HGB Conc 32.4 g/dl (31.0-35.0); Mean Corpuscular Hemoglobin 29.6 pg (27.0-33.0); Mean Corpuscular Volume 91.2 fL (80.0-98.0); Mean Platelet Volume 9.7 fL (9.4-12.3); Monocytes Absolute Auto 0.8 X10*3/uL (0.1-1.2); Monocytes Percent Auto 9.6 % (2-11); Neutrophils Absolute Auto 5.2 x10*3/uL (2.0-8.3); Neutrophils Percent Auto 60.8 % (45-73); Platelet Count 357 X10*3/uL (160-400); Red Blood Count 5.21 X10*6/uL (4.20-5.50); Red Cell Distribution Width 13.2 % (11.0-16.0); White Blood Count 8.6 X10*3/uL (4.8-10.8)
[2024-03-21 13:42] LABS: Estimated Average Glucose 111 mg/dL; Hemoglobin A1C 147.7514 umol/L; Hemoglobin A1c % 5.5 % (<6.0); Total Hemoglobin (HGBA1C) 4063.9425 umol/L
[2024-03-21 13:53] LABS: Creatinine Urine 207.97 mg/dL; Microalbum/Creatinine Ratio Ur 29.3 ug/mg cr (<30)
[2024-03-21 13:55] LABS: Alanine Aminotransferase 35 U/L (0-31); Albumin Level 4.1 g/dL (3.5-5.0); Alkaline Phosphatase 104 U/L (39-117); Anion Gap 9 (12-20); Aspartate Amino Transferase 25 U/L (5-31); Bilirubin Total 0.6 mg/dL (0.0-1.0); Blood Urea Nitrogen 17 mg/dL (9-16); Calcium 9.6 mg/dL (8.4-10.2); Carbon Dioxide 30 mmol/L (22-29); Chloride 106 mmol/L (96-108); Cholesterol 176 mg/dL (<200); Estimated Glomerular Filt Rate > 60; Glucose Random 114 mg/dL (60-115); HDL Cholesterol 61 mg/dL (>40); LDL Cholesterol Calculated 90 mg/dL (<100); Potassium 4.7 mmol/L (3.3-5.1); Sodium 140 mmol/L (135-145); Total Protein 7.2 g/dL (6.5-8.0); Triglycerides 129 mg/dL (<150)
[2024-03-21 14:10] LABS: TSH reflex Free T4 0.85 uIU/mL (0.32-4.0)
== END 2024-03-21 11:49 | disposition home or self-care (01) ==
LOC: HO.HHCL 11:48
PROVIDERS: Visit Provider Registered Nurse
DX: Z00.00 Encounter for general adult medical examination without abnormal findings (principal); E03.9 Hypothyroidism, unspecified
CPT/HCPCS: 36415; 80053; 80061; 82043; 82570; 83036; 84443; 85025

== ENCOUNTER 2024-07-03 13:03 | Outpatient (AMB) | payer MEDICAID, SELFPAY ==
[2024-07-03 13:27] VITALS: BP 124/74; PULSE 67; BMI 37.8
--- NOTE | 2024-07-03 13:27 | MHC.OFFVIS ---
Vital Signs 07/03/24 13:27 Height 4 ft 10 in Weight 180 lb 12.465 oz BMI 37.8 BP 124/74 Blood Pressure Location Lt brachial Position Sitting Pulse 67 Intake Visit Reasons: r/s 05/08/24 1 yr followup w/ekg Intake Note: 1 year follow-up with ekg feeling good Parts Lister Required: No Allergies ENVIRONMENTAL Allergy (Unknown, Uncoded 05/10/23 14:04) ITCHY EYES Medication List - Last Reconciled 07/03/24 by Fabrizio Swift MD albuterol sulfate 90 mcg/actuation 2 puffs inhalation Q6H PRN albuterol sulfate 5 mg inhalation Q6H amlodipine-valsartan 5-160 mg 1 tab PO DAILY atorvastatin 40 mg PO BEDTIME cetirizine 10 mg PO DAILY cholecalciferol (vitamin D3) 25 mcg PO DAILY fluticasone propionate 100 mcg/actuation (Flovent Diskus) 1 inh inhalation BID levothyroxine 137 mcg PO DAILY metoprolol succinate ER 50 mg PO DAILY nebulizers As directed omeprazole 20 mg PO DAILY HPI Comments Details: Nazia comes for follow-up after 1 year. Overall she has been doing very well. She was no active cardiac symptoms. She says currently she has not been exercising due to the weather although she has been going on a bike trail and biking and even running without any significant symptoms. She also denies any symptoms of skipped heartbeats or prolonged palpitation irregular heartbeat. Takes all her medications. Says a blood pressure remains very well controlled. Denies any orthopnea, PND, leg edema. No lightheadedness, syncope. [facility] Medical History Pulmonary nodules Asthma Postablative hypothyroidism Osteopenia Graves disease Paroxysmal atrial fibrillation HTN (hypertension) Hyperlipidemia Obesity Surgical History Hx of mammogram Family History Father No problems noted. Mother Diabetes Social History Household Members: None Patient Tobacco Use Status: Current everyday Tobacco user Tobacco use type: Cigarette Years Smoked: Since 16 Years Old Current occupational status: disabled Review of Systems Const Denies chills, Denies fatigue, Denies fever(s), Denies frequent falls, Denies weakness, Denies weight gain and Denies weight loss ENT Denies dizziness Card Denies chest pain, Denies leg edema, Denies lightheadedness, Denies palpitations, Denies dyspnea, Denies dyspnea on exertion, Denies orthopnea and Denies other (loss of consciousness) Resp Denies cough, Denies dyspnea and Denies dyspnea on exertion GI Denies hematochezia and Denies change in stool character Musc Denies abnormal gait, Denies muscle weakness, Denies numbness, Denies radiating pain into limb and Denies tingling Neuro Denies abnormal gait, Denies dizziness, Denies frequent falls, Denies numbness, Denies tingling and Denies weakness Endo Denies fatigue and Denies palpitations Physical Exam Vital Signs: Last Vital Signs Pulse 67 07/03/24 13:27 BP 124/74 07/03/24 13:27 BMI result Body Mass Index 37.8 Const General: cooperative, comfortable, no acute distress, alert and awake Nutritional Appearance: obese Orientation/consciousness: patient oriented x3 Neck Neck: Yes normal visual inspection and Yes no JVD Resp Effort & Inspection: normal respiratory effort Auscultation: clear to auscultation bilaterally, no crackles, no rales, no rhonchi and no wheezes Cardio Jugular venous distension: no JVD Rate: regular rate Rhythm: regular rhythm Heart sounds: S1 normal heart sound present, S2 normal heart sound present, no murmurs and no rubs Neuro General: patient oriented x3 Extrem General: Yes normal to inspection Psych Appearance: grossly normal Mental Status: mental status grossly normal Speech and movement: Normal speech and movement present Office Procedures EKG Details: EKG shows normal sinus rhythm with nonspecific ST abnormality [id number], Complete Assessment & Plan Assessment & Plan (1) Paroxysmal atrial fibrillation: Code(s): I48.0 - Paroxysmal atrial fibrillation Category: Medical Plan: Symptomatic atrial fibrillation although in the setting of thyrotoxicosis. Has not had any obvious clinical recurrence since then. She is doing well from that perspective. Thyroid is well optimized. Advised to avoid stimulants. Continue metoprolol therapy. Stress mitigation strategies were discussed. Encouraged to continue to participate in weight loss program which has shown to reduce recurrence of atrial fibrillation. At this point time other therapy is recommended including antiarrhythmic drugs. Advised to call me with any symptoms. (2) HTN (hypertension): Code(s): I10 - Essential (primary) hypertension Category: Medical Plan: Hypertension which is currently well optimized on current therapy. Importance of good blood pressure control was discussed. Importance of compliance with medication was discussed. Low-salt diet was discussed. Encouraged to participate in regular physical activity and more aggressive weight loss program. She understands agrees. Will follow up in the clinic in 1 year's time, sooner p.r.n.. Thank you for allowing me to partake in her care Coding Level of Care Code Est Pt Level 4 (58873) Complex EM visit Add On G2211 Diagnoses Paroxysmal atrial fibrillation I48.0 HTN (hypertension) I10 CPT Codes EKG - CPT: 49445-[id number], Complete ([id number])
--- OUTSIDE RECORDS SUMMARY | 2024-07-03 16:15 | XMS_ITS | Encounter Summary ---
Author Organization [employer] Address [address] [facility] 7[address] [place] [address] Care Team Providers Care Piece Goods Clerk Name Role Phone Jia Greenwood Primary Care Provider [phone] Reason for Visit * Reason Onset Date Comments PT-1 12/26/2023 Encounter Details Date Type Department Care Team ([facility] st Contact Info) Description 12/26/2023 Telephone [facility] MEDICINE [address] [place] [address] Jia Greenwood FNP [address] [place] [address] PT-1 Social History Tobacco Use Types Packs/Day Years Used Date Smoking Tobacco: Never Passive Smoke Exposure: Never Smokeless Tobacco: Never Alcohol Use Standard Drinks/Week Comments Never 0 (1 standard drink = 0.6 oz pur e alcohol) Depression Answer Date Recorded Patient Health Questionnaire-9 Score 0 05/18/2022 Housing Stability Answer Date Recorded What is your housing situation today? I have becky mitchell 06/08/[address] you li ve. Do you have problems with any of the following? None of the above 06/08/2023 Food Insecurity Answer Date Recorded Within the past 12 months, y ou worried that your food would run out before you got money to buy more: Never True 06/08/2023 Within the past 12 months,th e food you bought just didn't last and you didn't have enough money to get more: Never True 10/2023 Transportation Answer Date Recorded In the past 12 months, has l ack of transportation kept you from medical appts, meetings, work or from getting things needed for daily living? No 06/08/2023 Utilities Answer Date Recorded In the past 12 months, has t he electric, gas, oil or water company threatened to shut off services in your home? No 06/08/2023 Depression Answer Date Recorded Patient Health Questionnaire-2 Score 0 05/18/2022 Comments Unknown Sex and Gender Information Value Date Recorded Sex Assigned at Female 03/01/2022 10:16 AM EDT Legal Sex Female 10:16 AM EDT Gender Identity Female 03/01/2022 10:16 AM EDT Sexual Orientation Choose not to disclose 2021 10:16 AM EDT documented as of this encounter Miscellaneous Notes * Telephone Encounter - Porfirio Jimenez - 12/26/2023 12:53 PM EDT Patient calling requesting PT1 Home Address verified: Y/N: Yes Provider name or facility name: [facility] Facility Address: [address] [place] [address] Escort needed: Y/N: No Do you have a wheelchair: Y/N: No If yes- Manual or electric: N/A Visits 3 times monthly documented in this encounter Plan of Treatment Not on file documented as of this encounter Visit Diagnoses Not on filedocumented in this encounter Additional Health Concerns Assessment Noted Time PHQ-9 Depression Total Score: 0 05/18/19 23 1:06 PM EST documented as of this encounter Care Teams Piece Goods Clerk Relationship Specialty Start Date End Date Jia Greenwood FNP [address] [place] [id number] PCP - General Family Medicine 04/02/22 documented as of this encounter
--- OUTSIDE RECORDS SUMMARY | 2024-07-03 16:15 | XMS_ITS | Encounter Summary ---
Author Organization [employer] Address [address] [facility] 7[address] [place] [address] Care Team Providers Care Machine Puller Name Role Phone Jia Greenwood Primary Care Provider [phone] Reason for Visit * Reason Onset Date Comments PT-1 08/29/2023 Encounter Details Date Type Department Care Team ([facility] st Contact Info) Description 08/29/2023 Telephone [facility] MEDICINE [address] [place] [address] Jia Greenwood FNP [address] [place] [address] PT-1 Social History Tobacco Use Types Packs/Day [...] encounter Miscellaneous Notes * Telephone Encounter - Loreta Garg - 09/06/2023 12:53 PM EDT TC to patient regarding message. Patient stated she will bring letter she received to clinic. * Telephone Encounter - Kerri Fraser - 09/05/2023 1:52 PM EDT Tc from pt calling to inform called insurance regarding PT1 request and was inform it was denied byp . I did inform pt that is usually the insurance who makes the decisions but pt state the personshe spoke to said pcp filled out paper work wrong and put denied. Please call pt to clarify . * Telephone Encounter - Loreta Garg - 08/29/2023 3:46 PM EDT PT-1 submitted for patient. They will receive a letter of approval or denial in the mail. * Telephone Encounter - Porfirio Jimenez - 08/29/2023 10:37 AM EDT Patient calling requesting PT1 Home Address verified: Y/N: Yes Provider name or facility name: [facility] Facility Address: [address] [place] [address] Escort needed: Y/N: No Do you have a wheelchair: Y/N: No If yes- Manual or electric: N/A Visits: 2 monthly documented in this encounter Plan of Treatment Not on file documented as of this encounter Visit Diagnoses Not on filedocumented in this encounter Additional Health Concerns Assessment Noted Time PHQ-9 Depression Total Score: 0 05/18/19 23 1:06 PM EST documented as of this encounter Care Teams Machine Puller Relationship Specialty Start Date End Date iJa Greenwood FNP [address] [place] [id number] PCP - General Family Medicine 04/02/22 documented as of this encounter
--- OUTSIDE RECORDS SUMMARY | 2024-07-03 16:15 | XMS_ITS | Encounter Summary ---
Author Organization [employer] Address [address] [facility] [address] [place] [address] Care Team Providers Care Pencil Inspector Name Role Phone Jia Greenwood Primary Care Provider [phone] Reason for Visit * Reason Onset Date Comments Med Refill 02/28/2023 Encounter Details Date Type Department Care Team ([facility] Contact Info) Description 02/28/2023 Telephone [facility] MEDICINE [address] [place] [address] Jia Greenwood FNP [address] [place] [address] Med Refill Social History Tobacco Use Types Packs/Day Years Used Date Smoking Tobacco: Never Smokeless Tobacco: Never Alcohol Use Standard Drinks/Week Comments Never 0 (1 standard drink = 0.6 oz pur e alcohol) Depression Answer Date Recorded Patient Health Questionnaire-9 Score 0 05/18/2022 Housing Stability Answer Date Recorded What is your housing situation today? I have becky mitchell 02/14/[address] you li ve. Do you have problems with any of the following? None of the above 02/14/2023 Food Insecurity Answer Date Recorded Within the past 12 months, y ou worried that your food would run out before you got money to buy more: Never True 02/14/2023 Within the past 12 months,th e food you bought just didn't last and you didn't have enough money to get more: Never True Transportation Answer Date Recorded In the past 12 months, has l ack of transportation kept you from medical appts, meetings, work or from getting things needed for daily living? No 02/14/2023 Utilities Answer Date Recorded In the past 12 months, has t he electric, gas, oil or water company threatened to shut off services in your home? No 02/14/2023 Depression Answer Date Recorded Patient Health Questionnaire-2 Score 0 05/18/2022 Comments Unknown Sex and Gender Information Value Date Recorded Sex Assigned at Female 03/01/2022 10:16 AM EDT Legal Sex Female 10:16 AM EDT Gender Identity Female 03/01/2022 10:16 AM EDT Sexual Orientation Choose not to disclose 2021 10:16 AM EDT documented as of this encounter Miscellaneous Notes * Telephone Encounter - Vijay Garcia - 02/28/2023 10:21 AM EDT Tc from patient requesting medication refill for the following medications metoprolol succinate XL (Toprol XL) 50 MG 24 hr tablet, atorvastatin (Lipitor) 40 MG tablet, cetirizine (ZyrTEC) 10 MG tablet, and Fluticasone Propionate, Inhal, (Flovent Diskus) 100 MCG/ACT aerosol powder. documented in this encounter Plan of Treatment Not on file documented as of this encounter Visit Diagnoses Not on filedocumented in this encounter Additional Health Concerns Assessment Noted Time PHQ-9 Depression Total Score: 0 05/18/19 23 1:06 PM EST documented as of this encounter Care Teams Pencil Inspector Relationship Specialty Start Date End Date Jia Greenwood FNP [address] [place] [id number] PCP - General Family Medicine 04/02/22 documented as of this encounter
--- OUTSIDE RECORDS SUMMARY | 2024-07-03 16:15 | XMS_ITS | Clinical Summary ---
Author Organization [employer] Address [address] [facility] [address] [place] [address] Care Team Providers Care Fusing Machine Feeder Name Role Phone Jia Greenwood ZHAO Primary Care Provider [phone] Allergies No known active allergies Medications Diclofenac Sodium (Voltaren) 1 % gel Apply 2 g topically every 6 (six) hours. 1 Active acetaminophen (Mapap Arthritis Pain) 650 MG ER tablet Take 1 tablet by mouth every 12 (twelve) hours if needed. 1 Active Respiratory Therapy Supplies (Nebulizer) device Use as directed Acti ve Blood Pressure kit Use as directed Acti ve traZODone (Desyrel) 100 MG tabletIndication s:Depression with anxiety Take 0.5-1 tablets (50-100 mg) by mouth if needed at bedtime for sleep. 30 tablet 2 3 Active ketotifen (Zaditor) 0.025 % ophthalmic solutionIndicati ons:History of itching of eye One drop to eyes bid prn allergies 5 mL 1 4 Active Sod Fluoride-Potassi um Nitrate 1.1-5 % pasteIndications :Dental caries [place] teeth for 2 minutes, morning and night. Spit, do not rinse. Do not eat or drink anything for 30 minutes following brushing. 112 g 3 4 Active rOPINIRole (Requip) 0.25 MG tabletIndication s:Restless Leg Syndrome Take 1 tablet (0.25 mg) by mouth at bedtime. After 1 week, may increase to 2 tablets by mouth (0.5mg) at bedtime if initial dose not fully effective. 30 tablet 1 4 Active amLODIPine-valsa rtan (Exforge) 5-160 MG tabletIndication s:Hypertension Take 1 tablet by mouth Once per day. 90 tablet 3 4 Active levothyroxine (Tirosint) 137 MCG capsuleIndicatio ns:Hypothyroidis m, unspecified type TAKE 1 CAPSULE BY MOUTH EVERY DAY ON AN EMPTY STOMACH 90 capsule 3 4 Active cholecalciferol (Vitamin D-3) 25 MCG (1000 UT) tablet TAKE 1 TABLET BY MOUTH EVERY DAY 90 tablet 3 4 Active cetirizine (ZyrTEC) 10 MG tablet Take 1 tablet (10 mg) by mouth if needed each day for allergies. 90 tablet 3 4 Active fluticasone furoate (Arnuity Ellipta) 100 MCG/ACT inhalerIndicatio ns:Mild intermittent asthma without complication Inhale 1 puff Once per day. Rinse mouth with water after use to reduce aftertaste and incidence of candidiasis. Do not swallow. 1 each 11 4 Active albuterol (Ventolin HFA) 108 (90 Base) MCG/ACT inhalerIndicatio ns:Mild intermittent asthma without complication INHALE 2 PUFFS BY MOUTH EVERY 4 HOURS IF NEEDED 18 g 3 4 Active albuterol (2.5 MG/3ML) 0.083% nebulizer solutionIndicati ons:Mild intermittent asthma without complication Inhale 3 mL by nebulization route every 6 hours as needed 75 mL 3 4 Active buPROPion XL (Wellbutrin XL) 300 MG 24 hr tabletIndication s:Depression with anxiety TAKE 1 TABLET BY MOUTH EVERY MORNING 90 tablet 3 4 Active metoprolol succinate XL (Toprol XL) 50 MG 24 hr tablet Take 1 tablet (50 mg) by mouth Once per day. 90 tablet 3 4 Active omeprazole (PriLOSEC) [address] capsule Take 1 capsule (20 mg) by mouth Once per day. 90 capsule 3 4 Active atorvastatin (Lipitor) 40 MG tabletIndication s:Dyslipidemia Take 1 tablet (40 mg) by mouth at bedtime. For cholesterol 90 tablet 3 4 Active cyclobenzaprine (Flexeril) 5 MG tablet Take 1-2 tablets (5-10 mg) by mouth if needed at bedtime for muscle spasms. 30 tablet 3 4 025 Active Active Problems Problem Noted Date Diagnosed Date Healthcare maintenance 03/21/2024 Overview (03/21/2024): Mammo: BIRADS 2 on 07/22/23 Pap: NILM, HPV neg in Apr 2021 Colonoscopy: declines colonoscopy, agrees to cologuard - order placed 03/21/24 Gall bladder polyp 08/02/2023 Assessment & Plan (03/21/2024 10:58 AM EST): Incidental finding on US completed 07/08/23. 4mm gall bladder polyp. October 2023: consult with [facility] - Dr. Estrada. Plan: repeat US imaging in 1 year. If stable, no further follow up is needed Assessment & Plan (08/02/2023 7:31 AM EDT): Incidental finding on US completed 07/08/23. 4mm gall bladder polyp. Referral to GI placed. Reports appt scheduled for October 2023. Requesting PT1- message sent to referrals team. Restless leg syndrome 08/01/2023 Assessment & Plan (08/02/2023 7:30 AM EDT): Jun 2023: ferritin 99ng/mL Continue ropinirole nightly PRN (only using 1-3x/month) Missing teeth, acquired 06/21/2023 Dental caries 06/21/2023 Dental calculus 06/21/2023 Generalized gingival recession, moderate 024 Periodontal disease 06/21/2023 Osteoarthritis of knees, bilateral 02/10/2023 Assessment & Plan (02/10/2023 10:58 AM EDT): -Start celebrex 200mg BID PRN -Reviewed med use and safety Depression with anxiety 04/02/2022 Assessment & Plan (03/21/2024 11:03 AM EST): Previously following with RILEY Chong: In remission. Will continue Wellbutrin XL 300 mg daily. Has been sleeping well without medication, but will keep Trazodone 100 mg on hand and may take 1/2 - 1 tab at bedtime if needed. Cont plan above BH: declines at this time Assessment & Plan (05/18/2022 1:35 PM EST): In remission. Will continue Wellbutrin XL 300 mg daily. Has been sleeping well without medication, but will keep Trazodone 100 mg on hand and may take 1/2 - 1 tab at bedtime if needed. F/U with me in 3 months. She agrees with the plan. Assessment & Plan (04/02/2022 1:46 PM EST): -Followed by RILEY Chong -Continue with trazodone 100mg at bedtime -Continue with bupropion 300mg QAM Lung nodule 11/25/2021 Overview (06/08/2023): ?? Incidental finding of 4mm solid right middle lobe nodule noted on CT 03/2021, recommended follow up in 1 year ?? Repeat CT on 04/29/22 with the following Impression: some small pulmonary nodules are present with a 5mm pleural-based right upper lobe nodule (5:95) and a 4mm pleural-based left lower lobe nodule posteriorly (5:423) as well as a 3mm pleural-based nodule anteriorly (5:422). No other masses are seen. No infiltrates are seen. There is no evidence of COPD. ?? Following with [facility] Pulm - Dr. Jimenez ?? Apr 2023: small pulmonary nodules are unchanged. No new lung nodules seen. No evidence of COPD. Degenerative changes of spine. Lung RADS cat 2. Repeat in 1 year Assessment & Plan (04/04/2022 1:01 PM EST): -Incidental finding of 4mm solid right middle lobe nodule noted on CT 03/2021, recommended follow up in 1 year -Order for repeat CT placed Paroxysmal atrial fibrillation 10/21/2020 Overview (06/08/2023): -Following with [facility] Cards - Dr. Swift -Noted originally in the setting of thyrotoxicosis. Resolved following thyroid ablation -Continues on metoprolol 50mg daily -Mar 2023 Echo with EF 64%, holter monitor 7 day, sinus rhythm w/ HR 62 bpm. Rare SVE Assessment & Plan (06/08/2023 9:11 PM EST): Plan for follow up with Cards in 1 year (May 2024), sooner PRN Assessment & Plan (02/10/2023 10:50 AM EDT): -Noted originally in the setting of thyrotoxicosis. Resolved following thyroid ablation -Previously followed by Dr. Jamison BENEDICT -Pt asymptomatic -Continues on metoprolol 50mg daily Assessment & Plan (04/04/2022 1:08 PM EST): -previously followed by Dr. Jamison BENEDICT -Pt asymptomatic, symptoms resolved following tx of thyroid condition -Continues on metoprolol 50mg daily Hypertensive nephrosclerosis 12/04/2019 Hypothyroidism 04/04/2014 Overview (03/21/2024): -Continue with levothyroxine 137mcg daily Lab Results Component Value Date TSH 0.78 02/24/2023 Assessment & Plan (03/21/2024 11:01 AM EST): Repeat TSH ordered Assessment & Plan (02/10/2023 10:38 AM EDT): Repeat TSH ordered Assessment & Plan (04/04/2022 1:03 PM EST): -TSH WNL June 2021 -Continue with levothyroxine 137mcg daily Intellectual disability 04/04/2014 Obesity 04/04/2014 Hypertension 02/13/2013 Assessment & Plan (03/21/2024 11:01 AM EST): -Well controlled -Cont with amlodipine/valsartan 5mg-160mg, reviewed med safety and SE -Low salt diet and daily exercise as able Assessment & Plan (04/04/2022 1:00 PM EST): -Reports home readings 120s/70-80s mmHg -Cont with amlodipine/valsartan 5mg-160mg, reviewed med safety and SE -Low salt diet and daily exercise as able Kidney disease 02/13/2013 Dyslipidemia 06/01/2012 Assessment & Plan (03/21/2024 11:02 AM EST): -Continue with atorvastatin 40mg at bedtime -Repeat FLP ordered Assessment & Plan (04/04/2022 1:03 PM EST): -Continue with atorvastatin 40mg at bedtime Asthma 12/21/2011 Overview (03/21/2024): Maintenance: Arnuity Ellipta 100mcg/act - 1 puff daily Rescue: Albuterol (HFA & neb) Assessment & Plan (03/21/2024 10:58 AM EST): -Well controlled -Reviewed 'rule of 2s' and to present to office with worsening of symptom control Assessment & Plan (01/24/2024 2:36 PM EDT): -Well controlled -Continue with Flovent BID and albuterol PRN (reviewed Flovent may be switched to other ICS depending on insurance) -Reviewed 'rule of 2s' and to present to office with worsening of symptom control Assessment & Plan (06/08/2023 9:15 PM EST): -Well controlled -Continue with Flovent BID and albuterol PRN (reviewed Flovent may be switched to other ICS depending on insurance) -Reviewed 'rule of 2s' and to present to office with worsening of symptom control Assessment & Plan (04/04/2022 1:01 PM EST): -ACT score 22 -Continue with Flovent BID and albuterol PRN -Reviewed 'rule of 2s' and to present to office with worsening of symptom control Gastroesophageal reflux disease 12/21/2011 Resolved Problems Problem Noted Date Diagnosed Date Resolved Date Chronic pain of right knee 03/01/2021 1 Encounters Date Type Department Care Team Description 05/25/2024 Patient Outreach [facility] [address] [place] [id number] Jia Greenwood FNP 05/22/2024 Patient Outreach [address] [address] [place] Concerns (C3/[facility] [place] program graduation ) 05/18/[address] [address] Jia Greenwood FNP Results 05/03/2024 Patient Outreach [address] [address] Jia Greenwood FNP SDOH Concerns ([facility]/W ALEJANDRO Schaefer TC ) 04/19/2024 Patient Outreach [address] [address] Jia Greenwood FNP Care Coordination ([facility]/W ALEJANDRO Schaefer f/u call) from Last 3 Months Immunizations Name Administration Dates Next Due Hep A, ped/adol, 2 dose 04/06/2010,03/18/2009 Hep B, Adolescent or Pediatric 04/06/2010,2009,03/18/2009 Influenza Injectable Quadriv alant Preservative Free IIV4 MDCK 02/17/2023,02/16/2022,01/01/2020 Influenza injectable quadriv alent IIV4 with preservative 01/27/2015 Influenza injectable quadriv alent preservative free 02/25/2021,02/24/2019,02/02/2017 Influenza, High Dose Seasona l, Preservative Free 01/14/2015 Influenza, IIV3, injectable 04/04/2014 Influenza, Split (incl. jayne fied surface antigen) 02/13/2013,06/01/2012 Influenza, seasonal, injecta ble, preservative free 03/21/2024 Moderna Covid-19 Vaccine 12+ 07/29/2021,08/12/19 21,07/14/2020 Pneumococcal Polysaccharide PPSV23 02/15/2011 Tdap 07/29/2009 Family History Medical History Relation Name Comments Arthritis Father Lung cancer Maternal Grandmother Arthritis Mother Venous thrombosis Mother cholecystectomy Mother Lung cancer Paternal Grandmother Relation Name Status Comments Father Maternal Grandmother Mother Paternal Grandmother Social History Tobacco Use Types Packs/Day Years Used Date Smoking Tobacco: Never Passive Smoke Exposure: Never Smokeless Tobacco: Never Tobacco Cessation:Counseling Given: Not Answered Alcohol Use Standard Drinks/Week Comments Never 0 (1 standard drink = 0.6 oz pur e alcohol) Depression Answer Date Recorded Patient Health Questionnaire-9 Score 8 03/21/2024 Patient Health Questionnaire-9 Score 8 03/21/2024 Last PHQ-9: Questionnaire Data Not on file 1 05/21/2023 Housing Stability Answer Date Recorded What is [...] from getting things needed for daily living? Yes, it has kept me from medical appointments or getting medications. 04/02/2024 Utilities Answer Date Recorded In the past 12 months, has t he electric, gas, oil or water company threatened to shut off services in your home? No 06/08/2023 Depression Answer Date Recorded Patient Health Questionnaire-2 Score 0 03/21/2024 Internet Access Answer Date Recorded Internet Access Q1 Yes 04/02/2024 Internet Access Q2 Not on file 04/02/2024 Comments Unknown Sex and Gender Information Value Date Recorded Sex Assigned at Female 03/01/2022 10:16 AM EDT Legal Sex Female 10:16 AM EDT Gender Identity Female 03/01/2022 10:16 AM EDT Sexual Orientation Choose not to disclose 2021 10:16 AM EDT Last Filed Vital Signs Vital Sign Reading Time Taken Comments Blood Pressure 127/68 03/21/2024 10:12 AM EST Pulse 60 03/21/2024 10:12 AM EST Temperature 36.1 ??C (96.9 ??F) 03/21/2024 10:[address] Respiratory Rate 20 03/21/2024 10:12 AM EST Oxygen Saturation 99% 03/21/2024 10:12 AM EST Inhaled Oxygen Concentration - - Weight 82.7 kg (182 lb 6 oz) 03/21/2024 10:12 AM EST Height 147.3 cm (4' 10 ) 03/21/2024 10:12 AM EST Body Mass Index 38.12 03/21/2024 10:12 AM EST Plan of Treatment Health Maintenance Due Date Last Done Comments CT Colonography 1960 Colonoscopy 1960 FIT 1960 FOBT 1960 HIV Screening 1960 Sigmoidoscopy 1960 Hepatitis A Vaccines (1 of 2 - Risk 2-dose series) 1980 04/06/2010, 03/18/2009 Zoster Vaccines (1 of 2) 08/09/2011 Pneumococcal Vaccine: 50+ Years (2 of 2 - PCV) 02/16/2012 02/15/2011 DTaP/Tdap/Td Vaccines (2 - Td or Tdap) 07/30/2019 07/29/2009 Hepatitis B Vaccines (1 of 3 - Risk 3-dose series) 2021 04/06/2010, 07/29/2009, 03/18/2009 RSV Patients and Patients Aged 60 years or older (1 - Risk 60-74 years 1-dose series) 2021 Dental Oral Exam 12/21/2023 06/21/2023, , 08/05/2017, Additional history exists Dental Prophylaxis 12/21/2023 06/21/2023, 0 11/14/2018, 05/17/2018, Additional history exists COVID-19 Vaccine ( season) 2024 07/29/2021, 08/11/2020, 07/14/2020 Pap Smear 04/23/2024 04/23/2021, 12/21/2011 Dental X-Ray: Bitewings 06/22/2024 06/21/19 24, 11/14/2018, 08/05/2017, Additional history exists Mammogram 07/21/2024 07/22/2023, 03, 07/19/2022, Additional history exists Alcohol/Substance Use Screening 03/21/2025 03/21/2024 Depression Screening 03/21/2025 03/21/2024, 03/21/20 Tobacco Screening 03/21/2025 03/21/2024 SDOH Screening 04/02/2025 04/02/2024 Cervical Cancer Screening 04/23/2026 HPV/Cotest 04/23/2026 04/23/2021 Dental X-Ray: Full Mouth 06/22/2026 024, 12/19/2015, 02/02/2011 Colorectal Cancer Screening 05/03/2027 FIT DNA/Cologuard 05/03/2027 05/03/2024 Lipid Panel 03/21/2029 03/21/2024, 07/02, 07/14/2020 Hepatitis C Screening Completed 07/29/2021 Influenza Vaccine Completed 03/21/2024, , 02/16/2022, Additional history exists HIB Vaccines Aged Out No longer eligi ble based on patient's age to complete this topic HPV Vaccines Aged Out No longer eligi ble based on patient's age to complete this topic IPV Vaccines Aged Out No longer eligi ble based on patient's age to complete this topic Meningococcal Vaccine Aged Out No ian al eligible based on patient's age to complete this topic RSV under 20 months Aged Out No longe r eligible based on patient's age to complete this topic Rotavirus Vaccines Aged Out No longer eligible based on patient's age to complete this topic Procedures Procedure Name Priority Date/Time Associated Diagnosis Comments LAB COLOGUARD?? COLON CANCER SCREEN Routine 05/03/2024 9:00 AM EST Screening for colon cancer LIPID PANEL, STANDARD Routine 03/21/2024 11:51 AM EST Healthcare maintenance BI MAMMOGRAM SCREENING TOMOSYNTHESIS BILATERAL Routine 07/22/2023 1:15 PM EDT PROPHYLAXIS - ADULT Routine 06/21/2023 1 :00 PM EST Missing teeth, acquired Dental caries Dental calculus Periodontal disease Generalized gingival recession, moderate INTRAORAL - COMPLETE SERIES OF RADIOGRAPHIC IMAGES Routine 06/21/2023 1:00 PM EST Missing teeth, acquired Dental caries Dental calculus Periodontal disease Generalized gingival recession, moderate PERIODIC ORAL EVALUATION - ESTABLISHED PATIENT Routine 06/21/2023 1:00 PM EST Missing teeth, acquired Dental caries Dental calculus Periodontal disease Generalized gingival recession, moderate ZZZ HISTORICAL HEPATITIS C AB W/REFL TO HCV RNA, QN, PCR Routine 07/29/2021 9:42 AM EDT THINPREP IMAGING PAP AND HPV MRNA E6/E7, WITH CT/NG, TRICHOMONAS Routine 04/23/2021 11:12 AM EST from Last 3 Months or Most Recently Relevant to Health Maintenance Results * Cologuard?? colon cancer screening (05/03/2024 9:00 AM EST) Cologuard Result Negative Negative 05/10/19 12:55 AM EST [facility] (CLIA #:[id number]) Comment: NEGATIVE TEST RESULT. A negative Cologuard result indicates a low likelihood that a colorectal cancer (CRC) or advanced adenoma (adenomatous polyps with more advanced pre-malignant features) ??is present. The chance that a person with a negative Cologuard test has a colorectal cancer is less than 1 in 1500 (negative predictive value >99.9%) or has an ??advanced adenoma is less than ??5.3% (negative predictive value 94.7%). These data are based on a prospective cross-sectional study of 10,000 individuals at average risk for colorectal cancer who were screened with both Cologuard and colonoscopy. (Shawn Harry al, N Engl J Med 2014;370(14):1286- 1297) The normal value (reference range) for this assay is negative. COLOGUARD RE-SCREENING RECOMMENDATION: Periodic colorectal cancer screening is an important part of preventive healthcare for asymptomatic individuals at average risk for colorectal cancer. ??Following a negative Cologuard result, the [place] [employer] Society and U.S. Multi-Society Task Force screening guidelines recommend a Cologuard re-screening interval of 3 years. References: [place] [employer] Guideline for Colorectal Cancer Screening: https://www.cancer.org/cancer/zzrbt-ceunut-lqokfz/ttlnhgxna-xizadaeem-vyimjnz/ac s-rec ommendations.html.; Blake DK, Lesli CR, Omid GonzalezK, Colorectal Cancer Screening: Recommendations for Physicians and Patients from the U.S. Multi-Society Task Force on Colorectal Cancer Screening , Am J Gastroenterology 2017; 112:4946-4207. TEST DESCRIPTION: Composite algorithmic analysis of stool DNA-biomarkers with hemoglobin immunoassay. ?? Quantitative values of individual biomarkers are not reportable and are not associated with individual biomarker result reference ranges. Cologuard is intended for colorectal cancer screening of adults of either sex, 45 years or older, who are at average-risk for colorectal cancer (CRC). Cologuard has been approved for use by the U.S. FDA. The performance of Cologuard was established in a cross sectional study of average-risk adults aged 50-84. Cologuard performance in patients ages 45 to 49 years was estimated by sub-group analysis of near-age groups. Colonoscopies performed for a positive result may find as the most clinically significant lesion: colorectal cancer [4.0%], advanced adenoma (including sessile serrated polyps greater than or equal to 1cm diameter) [20%] or non- advanced adenoma [31%]; or no colorectal neoplasia [45%]. These estimates are derived from a prospective cross-sectional screening study of 10,000 individuals at average risk for colorectal cancer who were screened with both Cologuard and colonoscopy. (Shawn Patel et al, N Engl J Med 2014;370(14):6010-4646.) Cologuard may produce a false negative or false positive result (no colorectal cancer or precancerous polyp present at colonoscopy follow up). A negative Cologuard test result does not guarantee the absence of CRC or advanced adenoma (pre-cancer). The current Cologuard screening interval is every 3 years. ([employer] [employer] and U.S. Multi-Society Task Force). Cologuard performance data in a 10,000 patient pivotal study using colonoscopy as the reference method can be accessed at the following location: www.[employer].Cortexyme/results. Additional description of the Cologuard test process, warnings and precautions can be found at www.cologuard.com. Stool specimen (specimen) 05/03/2024 9:00 AM EST 05/04/2024 1:00 PM EST Jia Greenwood [facility] MOLECULAR DIAGNOSTICS ORDE RABLES Final Result Performing Organization Address [facility]/ZIP Co de Phone Number [facility] (CLIA #:[id number]) [place] [address], * Lipid Panel, Standard (03/21/2024 11:51 AM EST) Triglycerides 129 <150 mg/dL [facility] Comment:Desirable Triglyceri de: less than 150 mg/dLBorderline High Triglyceride 150-199 mg/dLHigh Triglyceride: 200-499 mg/dLVery High Triglyceride: greater than or equal to 5OO mg/dL Cholesterol 176 <200 mg/dL [facility] Comment:Desirable Cholestero l: less than 200 mg/dLBorderline High Cholesterol: 200-239 mg/dLHigh Cholesterol: greater than 239 mg/dL LDL Cholesterol Calculated 90 <100 mg/dL [facility] Comment:Desirable LDL: less than 100 mg/dLNear Optimal/Above Optimal LDL: 110- 129 mg/dLBorderline High LDL: 130-159 mg/dLHigh LDL: 160-189 mg/dLVery High LDL: greater than or equal to 190 mg/dL HDL Cholesterol 61 >40 mg/dL [facility] Comment:Desirable HDL: great er than 40 mg/dL Note: This HDL assay may give artificially low results in patients with liver disease. Blood Venous blood specimen / Unknown 03/21/2024 11:51 AM EST 03/21/2024 1:16 PM EST Jia Greenwood [facility] BLOOD ORDERABLES Final Res ult Performing Organization Address City/[facility] Care [facility]/ZIP Co de Phone Number [facility] [address] [place] [phone] * BI Mammogram Screening Tomosynthesis Bilateral (07/22/2023 1:15 PM EDT) Anatomical Region Laterality Modality Breast Bilateral Mammography 07/22/2023 1:15 PM EDT Narrative 08/09/2023 10:54 AM EDT ? [facility] ? [address] ?[place] [address] ? Mammography Report ? Signed ? Patient: Nazia Garcia ?MR#: [id number] ?? 6 ? : 1960 ?Acct:[id number] ? Age/Sex: 62 / F ?ADM Date: 07/22/23 ? Loc: HO.MAMMO ? Attending Dr: Jia Greenwood POWER PRESS TENDER ? Ordering Physician: iJa Greenwood POWER PRESS TENDER ?Results: 2Benig ?? n Findings ? Date of Service: 07/22/23 ?Follow Up: 1 Year From Orig ?? inal Mammogram ? Procedure(s): MM tomosynthesis screening BI ?? Accession Number(s): [id number] ? cc: iJa Greenwood POWER PRESS TENDER ? EXAMINATION: ?? MM SCREENING DIGITAL BREAST TOMOSYNTHESIS, BILATERAL ? CLINICAL INFORMATION: ? Screening. Asymptomatic. ? COMPARISON: ?? Mammography: 07/19/2022, 07/16/2021, 03/26/2020, 03/08/2019 ? TECHNIQUE: ?? Digital breast tomosynthesis is performed in both the craniocaudal and ?? mediolateral oblique views along with computer-aided detection (CAD). ?? Synthesized 2D images are generated from the tomosynthesis. ??3-D left ?? cleavage view, as well as an additional left MLO with nipple in profile ?? were also provided. ? FINDINGS: ?? The breasts are almost entirely fatty (ACR BI-RADS breast composition ?? Category a). ? Redemonstration of chronic bilateral mild nipple retraction. This is ?? unchanged. There are a few scattered secretory calcifications in both ?? breasts, benign. No developing masses, developing regions of ?? architectural distortion, or suspicious grouped calcifications in ?? either breast. The parenchymal pattern is stable from prior exams. No ?? skin or axillary abnormalities. ? MM/MM tomosynthesis screening BI ?? IMPRESSION: ?? No mammographic evidence of malignancy. ? ASSESSMENT: ? BI-RADS BI-RADS 2 - Benign Findings ? RECOMMENDATION: ?? Routine annual mammography screening. ? 1 year F/U ? This examination should not preclude the clinical evaluation of a ?? suspicious palpable abnormality. ? This patient's information was entered into a reminder system with a ?? target due date for their next mammogram. ? Dictated By: ?Manuel Becker MD ? Signed By: ?<Electronically signed by Manuel Becker MD in OV> ?08/09/23 1051 ? DD/ 1315 ? TD/TT: ? 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 Procedure Note Chucho Becker - 08/09/2023 [place] [facility] [address] [place] [address] [place] [address] Mammography Report Signed Patient: Nazia Garcia MMR#: [id number] 6 : 2Acct:[id number] Age/Sex: 62 / FADM Date: 07/22/23 Loc: [facility] Attending Dr: Jia Greenwood POWER PRESS TENDER Ordering Physician: Jia Greenwood FNPResults: 2Benig n Findings Date of Service: 07/22/23Follow Up: 1 Year From Orig inal Mammogram Procedure(s): MM tomosynthesis screening BI Accession Number(s): [id number] cc: Jia Greenwood POWER PRESS TENDER EXAMINATION: MM SCREENING DIGITAL BREAST TOMOSYNTHESIS, BILATERAL CLINICAL INFORMATION: Screening. Asymptomatic. COMPARISON: Mammography: 07/19/2022, 07/16/2021, 03/26/2020, 03/08/2019 TECHNIQUE: Digital breast tomosynthesis is performed in both the craniocaudal and mediolateral oblique views along with computer-aided detection (CAD). Synthesized 2D images are generated from the tomosynthesis. 3-D left cleavage view, as well as an additional left MLO with nipple in profile were also provided. FINDINGS: The breasts are almost entirely fatty (ACR BI-RADS breast composition Category a). Redemonstration of chronic bilateral mild nipple retraction. This is unchanged. There are a few scattered secretory calcifications in both breasts, benign. No developing masses, developing regions of architectural distortion, or suspicious grouped calcifications in either breast. The parenchymal pattern is stable from prior exams. No skin or axillary abnormalities. MM/MM tomosynthesis screening BI IMPRESSION: No mammographic evidence of malignancy. ASSESSMENT: BI-RADS BI-RADS 2 - Benign Findings RECOMMENDATION: Routine annual mammography screening. 1 year F/U This examination should not preclude the clinical evaluation of a suspicious palpable abnormality. This patient's information was entered into a reminder system with a target due date for their next mammogram. Dictated By: Manuel Becker MD Signed By: <Electronically signed by Manuel Becker MD in OV> 08/09/23 1051 DD/ 1315 TD/TT: Drill Rig Operator Helper: Jia Greenwood POWER PRESS TENDER IMG BI PROCEDURES Final Result * (ABNORMAL) HEPATITIS C AB W/REFL TO HCV RNA, QN, PCR (07/29/2021 9:42 AM EDT) HEPATITIS C ANTIBODY REACTIVE( A) NON-REACT ROSA [facility] INDEX 11.80(H) <1.00 [facility] Comment: ?? Based on this result, the sample will be tested for HCV RNA by a Nucleic Acid Amplification Test (NAAT) to determine if the patient has a current active infection. ?? 07/29/2021 9:42 AM EDT us Miriam Saul NP HISTORICAL/NON ORDERABLE LABS F inal Result [facility] [address] [place] [id number], * THINPREP TIS PAP AND HPV mRNA E6/E7, CT/NG, TRICH (04/23/2021 11:12 AM EST) Chlamydia trachomatis RNA, TMA, Urogenital NOT DETECTED NOT DETECTED [facility] Clinical Information: None given [facility] COMMENT SEE COMMENT [facility] Comment: The analytical performance characteristics of this assay, when used to test SurePath(TM) specimens have been determined by [employer]. The modifications have not been cleared or approved by the FDA. This assay has been validated pursuant to the CLIA regulations and is used for clinical purposes. ?? For additional information, please refer to https://education.Grooveshark/faq/FRN231 (This link is being provided for information/ educational purposes only.) ?? COMMENT SEE COMMENT [facility] Comment: EXPLANATORY NOTE: ? The Pap is a screening test for cervical cancer. It is ?? not a diagnostic test and is subject to false negative ?? and false positive results. It is most reliable when a ?? satisfactory sample, regularly obtained, is submitted ?? with relevant clinical findings and history, and when ?? the Pap result is evaluated along with historic and ?? current clinical information. ?? COMMENT: This Pap test has been evaluated with computer assisted technology. [facility] Diet Aid: SEE COMMENT [facility] Comment: ED, CT(ASCP) CT screening location: ?? [facility] [place] ?? [address] [place] [address] ?? [place], [place] [address] HPV nRNA E6/E7 Not Detected Not Detected [facility] Comment: Methodology: Product Mgr-Mediated Amplification This assay detects E6/E7 viral messenger RNA (mRNA) from 14 high-risk HPV types (16,18,31,33,35,39,45,51,52,56,58,59,66,68). ? The analytical performance characteristics of this assay have been determined by [employer]. The modifications have not been cleared or approved by the FDA. This assay has been validated pursuant to the CLIA regulations and is used for clinical purposes. ?? For additional information, please refer to http://[employer]/faq/QFB321w3 (This link if provided for information/ educational purposes only.) Interpretation/Res ult: SEE COMMENT [facility] Comment: Negative for intraepithelial lesion or malignancy. Atrophic pattern; predominantly parabasal cells LMP: NONE GIVEN [facility] Neisseria gonorrhoeae RNA, TMA, Urogenital NOT DETECTED NOT DETECTED [facility] Prev. BX: NONE GIVEN [facility] Prev. PAP: NONE GIVEN [facility] SOURCE: None given [facility] Statement Of Adequacy: SATISFACTORY FOR EVALUATION [facility] Trichomonas vaginalis, QL, TMA, PAP Vial NOT DETECTED NOT DETECTED [facility] Comment: The analytical performance characteristics of this assay have been determined by [employer]. The modifications have not been cleared or approved by the FDA. This assay has been validated pursuant to the CLIA regulations and is used for clinical purposes. ?? For additional information, please refer to [email or web address]/ faq/Trichomonastma (This link is being provided for information/ educational purposes only.) ?? NO COLLECTION DATE RECEIVED. WE HAVE USED THE DATE THE SPECIMEN WAS RECEIVED BY THIS LABORATORY THE COLLECTION DATE. IF THIS IS INCORRECT, PLEASE CONTACT CLIENT SERVICES. PHONE NUMBER: ?? 04/23/2021 11:1 2 AM EST us Miriam Saul NP LAB PATHOLOGY ORDERABLES Final Result [facility] [address] from Last 3 Months or Most Recently Relevant to Health Maintenance Insurance [facility] ST[facility] ADULT Advance Directives Documents on File Type Date Recorded Patient Inclusion Special Educator Expl anation Advance Directives and Livin g Will 04/02/2022 1:13 PM Care Teams Fusing Machine Feeder Relationship Specialty Start Date End Date Jia Greenwood FNP [address] [place] [address] PCP - General Family Medicine 04/02/22
--- OUTSIDE RECORDS SUMMARY | 2024-07-03 16:15 | XMS_ITS | Encounter Summary ---
Author Organization [employer] Address [address] [address] Care Team Providers Care Apigee Developer Name Role Phone Jia Greenwood Primary Care Provider [phone] Reason for Visit * Reason Onset Date Comments PT1 02/04/2023 Encounter Details Date Type Department Care Team ([facility] st Contact Info) Description 02/04/2023 Telephone [facility] MEDICINE [address] [place] [address] Jia Greenwood FNP [address] [place] [address] PT1 Social History Tobacco Use Types Packs/Day Years Used Date Smoking Tobacco: Never Smokeless Tobacco: Never Alcohol Use Standard Drinks/Week Comments Never 0 (1 standard drink = 0.6 oz pur e alcohol) Depression Answer Date Recorded Patient Health Questionnaire-9 Score 0 05/18/2022 Depression Answer Date Recorded Patient Health Questionnaire-2 [...] * Telephone Encounter - Loreta Garg - 02/04/2023 2:06 PM EDT PT-1 submitted for patient. They will receive a letter of approval or denial in the mail. * Telephone Encounter - Marisol Estradanez - 02/04/2023 1:41 PM EDT PT1 Address verified Date: 02/24/23 Time: 3 pm Visits: n/a Address: [address] [place] [address] Facility: Cardiology Wheel Chair: n/a Extension Service Specialist In Charge Needed: no documented in this encounter Plan of Treatment Not on file documented as of this encounter Visit Diagnoses Not on filedocumented in this encounter Additional Health Concerns Assessment Noted Time PHQ-9 Depression Total Score: 0 05/18/19 1:06 PM EST documented as of this encounter Care Teams Apigee Developer Relationship Specialty Start Date End Date Jia Greenwood FNP [address] [place] [address] PCP - General Family Medicine 04/02/22 documented as of this encounter
--- OUTSIDE RECORDS SUMMARY | 2024-07-03 16:15 | XMS_ITS | Patient Health Record ---
Author Organization [facility] Address [address] [place] [address] Care Team Providers Care Business Operations Manager Name Role Phone KRISTI HORTON MD Primary Care Provider Unavailanibal ble Jacek Estrada Jr Unavailable ALLERGIES Allergen (clinical drug ingredient) Drug/Non Drug Allergy documented on EMR Reaction Allergy Type Onset Date Status seasonal (uncoded) Unknown Allergy A ctive REASON FOR REFERRAL Referring Provider First Name KRISTI Referring Provider Last Name SOL Referred Organization [facility] Referred Provider Jaeck Estrada Jr Referred Address [address],[place],[address], Referred Provider Specialty Gastroentero logy Referral Priority Routine MEDICATIONS Medication SIG (Take, Route, Frequency, Duration) Notes Start Date End Date Status Omeprazole 20 MG 1 capsule 30 minutes before morning meal Orally Once a day for 30 day(s) 10/17/2023 Active Arnuity Ellipta 100 MCG/ACT 1 puff Inhal ation Once a day Active Vitamin D-3 25 MCG (1000 UT) 1 capsule O rally Once a day for 30 day(s) Active buPROPion HCl ER (XL) 300 MG 1 tablet in the morning Orally Once a day for 30 day(s) Active Metoprolol Succinate 50 MG 1 capsule Ora lly Once a day for 30 day(s) Active urSXQCPzlh-Ekigefcpp-OKKL 5-160-12.5 MG 1 tablet Orally Once a day for 30 day(s) Active Atorvastatin Calcium 40 MG 1 tablet Oral ly Once a day for 30 day(s) Active Levothyroxine Sodium 137 MCG 1 tablet in the morning on an empty stomach Orally Once a day for 30 day(s) Active Cetirizine HCl 10 MG 1 tablet Orally Onc e a day for 30 day(s) 10/17/2023 Active IMMUNIZATIONS Vaccine Route Administration Date Status Comme nts Influenza Unknown 02/22/2023 Administered SOCIAL HISTORY Tobacco Use: Social History Observation Description Date Details (start date - stop date) Never Smoker NA - NA Sex Assigned At : Social History Observation Description Sex Assigned At Unknown Tobacco Use/Smoking Question Answer Notes Patient is a nonsmoker Alcohol Screen Question Answer Notes Did you have a drink containing alcohol in the p ast year? No Points 0 Interpretation Negative PROBLEMS Problem Type ICD Code Onset Dates Problem Status W/U Status Risk SNOMED Code Notes Problem Fatty liver (K76.0) Active confirmed Problem Gallbladder polyp (K82.4) Active confirmed Problem Colonoscopy refused (Z53.20) Active confirmed 391802011001516 VITAL SIGNS Temperature 98.2 degrees Fahrenheit 10/17/2023 Blood pressure diastolic 00 mm Hg 10/17/2023 Height 4 ft 10 in in 10/17/2023 Blood pressure systolic 000 mm Hg 10/17/2023 Weight 192 lb 2 oz lbs 10/17/2023 BMI 40.15 kg/m2 10/17/2023 Encounters Encounter Location Date Provider Diagnosis [facility] [address] [place] [address] 10/17/2023 Jacek Estrada Jr Gallbladder polyp K82.4 ; Fatty liver K76.0 and Colonoscopy refused Z53.20 ASSESSMENTS Encounter Date Diagnosis Assessment Notes Treatment Notes Treatment Clinical Notes 10/17/2023 Fatty liver (ICD-10 - K76.0) 10/17/2023 Gallbladder polyp (ICD-10 - K82.4) Bile acid sequestrants for cholesterol material was printed 10/17/2023 Colonoscopy refused (ICD-10 - Z53.20) PLAN OF TREATMENT Pending Test Test Name Order Date US ABD 10/17/2023 Insurance Providers Payer Name Payer Address Payer Phone Subscriber Number Group Number Insured Name Patient Relationship to Insured Coverage Start Date Coverage End Date [employer] OF [employer] (formerly [employer]) [address] [place] [phone] [id number] MARK JASSO Self - patient is the insured MEDICAL (GENERAL) HISTORY Medical History History ICD Code Environmental allergies Gastroesophageal reflux disease Hypothyroidism Hypertension Paroxysmal atrial fibrillation Hyperlipidemia Elevated body mass index Osteoarthritis Surgical History Surgery Date(Month/Year)
--- OUTSIDE RECORDS SUMMARY | 2024-07-03 16:15 | XMS_ITS | Encounter Summary ---
Author Organization [employer] Address [address] 7t [place] [address] Care Team Providers Care Residential Sales Associate Name Role Phone Jia Greenwood Primary Care Provider [phone] Reason for Visit * Reason Onset Date Comments PT-1 09/20/2023 Encounter Details Date Type Department Care Team ([facility] st Contact Info) Description 09/20/2023 Telephone [facility] MEDICINE [address] [place] [address] Jia Greenwood FNP [address] [place] [address] PT-1 Social History Tobacco Use Types Packs/Day [...] * Telephone Encounter - Loreta Garg - 09/20/2023 2:24 PM EDT PT-1 submitted for patient. They will receive a letter of approval or denial in the mail. * Telephone Encounter - Vijay Garcia - 09/20/2023 9:59 AM EDT Patient calling requesting PT1 Home Address verified: Y/N: Yes Provider name or facility name: [facility] Facility Address: [address] [place] [address] Escort needed: Y/N: No Do you have a wheelchair: Y/N: No If yes- Manual or electric: no Visits: 3 Appt is on 10/12 @ 1:30pm documented in this encounter Plan of Treatment Not on file documented as of this encounter Visit Diagnoses Not on filedocumented in this encounter Additional Health Concerns Assessment Noted Time PHQ-9 Depression Total Score: 0 05/18/19 23 1:06 PM EST documented as of this encounter Care Teams Residential Sales Associate Relationship Specialty Start Date End Date Jia Greenwood FNP [address] [place] [address] PCP - General Family Medicine 04/02/22 documented as of this encounter
--- OUTSIDE RECORDS SUMMARY | 2024-07-03 16:15 | XMS_ITS ---
Author Organization [facility] Address [address] [place] [address] Care Team Providers Care Marketing Operations Manager Name Role Phone KRISTI HORTON MD Primary Care Provider Jacek Dexter Jr Unavailable [phone] ALLERGIES Allergen (clinical drug ingredient) Drug/Non Drug Allergy documented on EMR Reaction Allergy Type Onset Date Status seasonal (uncoded) Unknown Allergy A ctive REASON FOR VISIT Patient presents today for a gallbladder polyp MEDICATIONS Medication SIG (Take, Route, Frequency, Duration) Notes Start Date End Date Status Omeprazole 20 MG 1 capsule 30 minutes before morning meal Orally Once a day for 30 day(s) 10/17/2023 Active yaSSYIKube-Zpbazndso-PSZN 5-160-12.5 MG 1 tablet Orally Once a [...] Once a day for 30 day(s) Active SOCIAL HISTORY Tobacco Use: Social History Observation [...] W/U Status Risk SNOMED Code Notes Problem Gallbladder polyp (K82.4) Active confirmed Problem Fatty liver (K76.0) Active confirmed Problem Colonoscopy refused (Z53.20) Active confirmed [id number] VITAL SIGNS Temperature 98.2 degrees Fahrenheit 10/17/19 24 Blood pressure systolic 000 mm Hg 10/17/19 24 Blood pressure diastolic 00 mm Hg 024 Height 4 ft 10 in in 10/17/2023 Weight 192 lb 2 oz lbs 10/17/2023 BMI 40.15 kg/m2 10/17/2023 Encounters Encounter Location Date Provider Diagnosis [facility] [address] [place] [address] 10/17/2023 Jacek Estrada Jr Gallbladder polyp K82.4 ; Fatty liver K76.0 and Colonoscopy refused Z53.20 ASSESSMENTS Encounter Date Diagnosis Assessment Notes Treatment Notes Treatment Clinical Notes 10/17/2023 Gallbladder polyp (ICD-10 - K82.4) Bile acid sequestrants for cholesterol material was printed 10/17/2023 Fatty liver (ICD-10 - K76.0) 10/17/2023 Colonoscopy refused (ICD-10 - Z53.20) PLAN OF TREATMENT Treatment Notes Assessment Notes Gallbladder polyp Bile acid sequestran ts for cholesterol material was printed Pending Test Test Name Order Date US ABD 10/17/2023 Next Appt Details Follow Up: 1 Year, Reason: Progress Notes * Examination Category Sub-Category Detail Notes General Examination GENERAL APPEARANCE: in no ac aris distress HEAD: normocephalic EYES: sclera non-icteric NECK/THYROID: no lymphadenopathy HEART: S1, S2 normal, no mu rmurs CHEST: normal shape and exp ansion LUNGS: clear to auscultatio n bilaterally ABDOMEN: soft, nontender, non distended, bowel sounds present, no organomegaly SKIN: anicteric EXTREMITIES: no clubbing, cyanosi s, or edema PSYCH: cognitive function i ntact ORAL CAVITY: mucosa moist
--- OUTSIDE RECORDS SUMMARY | 2024-07-03 16:15 | XMS_ITS | Encounter Summary ---
Author Organization [employer] Address [address] [facility] [address] 7t [place] [address] Care Team Providers Care Member Of Parliament Name Role Phone Jia Greenwood Primary Care Provider [phone] Reason for Visit * Reason Onset Date Comments PT1 03/30/2023 Encounter Details Date Type Department Care Team ([facility] st Contact Info) Description 03/30/2023 Telephone [facility] MEDICINE [address] [place] [address] Jia Greenwood FNP [address] [place] [address] PT1 Social History Tobacco Use Types Packs/Day [...] * Telephone Encounter - Loreta Garg - 03/31/2023 9:58 AM EST PT-1 submitted for patient. They will receive a letter of approval or denial in the mail. * Telephone Encounter - Leslie Cm - 03/30/2023 12:55 PM EST Tc from pt requesting PT1 transportation. Date: n/a Time: n/a Visits: 12 to 15 a year Address: [address] [place] [address] Facility: [facility] Wheel Chair: n/a Plate Grainer Apprentice Needed: no documented in this encounter Plan of Treatment Not on file documented as of this encounter Visit Diagnoses Not on filedocumented in this encounter Additional Health Concerns Assessment Noted Time PHQ-9 Depression Total Score: 0 05/18/19 23 1:06 PM EST documented as of this encounter Care Teams Member Of Parliament Relationship Specialty Start Date End Date Jia Greenwood FNP [address] [place] [address] PCP - General Family Medicine 04/02/22 documented as of this encounter
--- OUTSIDE RECORDS SUMMARY | 2024-07-03 16:15 | XMS_ITS | Encounter Summary ---
Author Organization [employer] Address [address] [place] [address] 7[address] [place] [address] Care Team Providers Care Ambulance Attendant Name Role Phone Chelsie Brianna STATE SUPERINTENDENT [employer] Primary Care Provider [phone] Jia Greenwood Primary Care Provider [phone] Encounter Details Date Type Department Care Team (Latest Contact Info) Description 05/17/2018 Abstract [facility] CONVERSIONS Dental, Provider, DDS Social History Tobacco Use Types Packs/Day Years Used Date Smoking Tobacco: Never Assessed Comments Unknown Sex and Gender Information Value Date Recorded Sex Assigned at Female 03/01/2022 10:16 AM EDT Legal Sex Female 10:16 AM EDT Gender Identity Female 03/01/2022 10:16 AM EDT Sexual Orientation Choose not to disclose 2021 10:16 AM EDT documented as of this encounter Plan of Treatment Not on file documented as of this encounter Visit Diagnoses Not on filedocumented in this encounter Care Teams Ambulance Attendant Relationship Specialty Start Date End Date Brianna Holguin FNP [address] [place] [address] PCP - General Family Medicine 12/23/21 04/01/22 Jia Greenwood FNP [address] [place] [address] PCP - General Family Medicine 04/02/22 documented as of this encounter
== END 2024-07-03 13:49 | disposition home or self-care (01) ==
PROVIDERS: PCP Registered Nurse; Visit Provider Internal Medicine Cardiovascular Disease
DX: I48.0 Paroxysmal atrial fibrillation (principal); I10 Essential (primary) hypertension
CPT/HCPCS: 93010; 99214

== ENCOUNTER → 2024-07-03 13:03 | Outpatient (BNVA) | payer MEDICAID, SELFPAY | PROVIDERS: PCP Registered Nurse; Visit Provider Internal Medicine Cardiovascular Disease | DX: I48.0 Paroxysmal atrial fibrillation (principal); I10 Essential (primary) hypertension; R94.31 Abnormal electrocardiogram [ECG] [EKG] | CPT/HCPCS: 93005; 99212 ==

== ENCOUNTER 2024-07-27 13:05 | Outpatient (REF) | payer MEDICAID, SELFPAY ==
--- NOTE | ~2024-07-27 | CT_ITS ---
EXAMINATION: CT CHEST WITHOUT CONTRAST CLINICAL INFORMATION: Pulmonary nodules. COMPARISON: April 14, 2023. TECHNIQUE: Multidetector volumetric CT imaging of the chest was done. Axial MIP volume rendering provided. Sagittal and coronal reformatted images were obtained. This CT examination was performed using dose optimization techniques as appropriate, variously including the following: *Automated exposure control *Adjustment of mA and/or kV according to patient size (this includes techniques or standardized protocols for targeted exams where dose is matched to indication/reason for exam; i.e. extremities or head) *Use of iterative reconstruction technique DLP: 129 mGy centimeter. FINDINGS: CLASSROOM TECHNOLOGY TECHNICIAN: No hyperinflation. Large body habitus. LUNGS: Bilateral, a few, scattered, nonspecific, less than 4 mm noncalcified subpleural nodules, the largest in the right middle lung lobe. No bronchiectasis. No honeycombing. Respiratory airways is patent. MEDIASTINUM: No lymphadenopathy. No aneurysm, thoracic aorta. No pericardial effusion. Heart is not enlarged. Mild calcified plaque in the mitral valve. Mild calcified plaque in the inferior aortic arch. CORONARY ARTERY CALCIFICATION: None visualized on this study. PLEURA: No pleural effusion. No pneumothorax. AXILLA: Nonspecific prominent 1.3 cm lymph node, left axilla. UPPER ABDOMEN: Focal calcification distal splenic artery near the splenic hilum. Contracted gallbladder. No nodular lesions in the adrenal glands. OSSEOUS STRUCTURES: S-shaped curvature of the thoracic spine. Mild multilevel thoracic and upper lumbar spondylosis. No acute fracture or gross listhesis. No lytic or cystic lesions. CT/CT chest wo IV con IMPRESSION: Nonspecific subcentimeter noncalcified subpleural pulmonary nodules, largest right middle lung lobe. Stable. Fleischner guidelines were followed. Electronically signed by: George Diaz MD 07/27/2024 03:32 PM EDT
== END 2024-07-27 13:06 | disposition home or self-care (01) ==
LOC: HO.CT 13:05
PROVIDERS: PCP Registered Nurse; Visit Provider Hospitalist
DX: R91.8 Other nonspecific abnormal finding of lung field (principal)
CPT/HCPCS: 71250

== ENCOUNTER → 2024-07-27 13:07 | Outpatient (BNV) | payer MEDICAID, SELFPAY | PROVIDERS: PCP Registered Nurse; Visit Provider Radiology Diagnostic Radiology | DX: R91.8 Other nonspecific abnormal finding of lung field (principal) | CPT/HCPCS: 71250 ==

== ENCOUNTER 2024-09-27 11:42 | Outpatient (REF) | payer MEDICAID, SELFPAY ==
--- OUTSIDE RECORDS SUMMARY | 2024-09-27 11:57 | XMS_ITS | Clinical Summary ---
Author Organization [employer] Address [address] [facility] [address] [place] [address] Care Team Providers Care Negative Cutter Name Role Phone Jia Greenwood ZHAO Primary Care Provider [phone] Allergies No known active allergies Medications Diclofenac [...] um Nitrate 1.1-5 % pasteIndications :Dental caries Belt teeth for 2 minutes, morning and night. [...] no evidence of COPD. ?? Following with [facility] Pulm - Dr. Jimenez ?? Apr 2023: [...] atrial fibrillation 10/21/2020 Overview (06/08/2023): -Following with [facility] Cards - Dr. Swift -Noted originally in [...] thyroid ablation -Previously followed by Dr. Jamison Almaraz [facility] -Pt asymptomatic -Continues on metoprolol 50mg daily Assessment & Plan (04/04/2022 1:08 PM EST): -previously followed by Dr. aJmison BENEDICT -Pt asymptomatic, symptoms resolved following tx [...] Encounters Date Type Department Care Team Description 08/16/2024 Telephone [facility] [address] [place] [phone] Jia Greenwood FNP Results 08/03/2024 Telephone [facility] [address] [place] [address] Jia Greenwood FNP Results 07/27/2024 Orders Only [facility] External Provider, [facility] 07/23/2024 Telephone [facility] [address] [place] [address] Jia Greenwood FNP March 07/23/2024 Travel 07/18/2024 Telephone [facility] [address] [place] [address] Jia Greenwood FNP PT1 07/13/2024 Population Health Risk Score [facility] () Department [address] [place] [phone] Provider, Population Health Generic from Last 3 Months Immunizations Immunization Administration Dates Next Due Hep A, ped/adol, [...] 03/21/2024 10:12 AM EST Plan of Treatment Upcoming Encounters Date Type Department Care Team (Late st Contact Info) Description 12/26/2024 11:15 AM EDT Office Visit [facility] [address] [place] [address] Jia Greenwood, MESSAGE CLERK [address] [place] [address] Health Maintenance Due Date Last Done Comments CT Colonography 1960 Colonoscopy 1960 FIT 1960 FOBT 1960 HIV Screening 1960 Sigmoidoscopy 1960 Disability Screening 1960 Hepatitis A Vaccines (1 of 2 [...] 08/05/2017, Additional history exists Mammogram 07/21/2024 07/22/2023, 07/01, 07/19/2022, Additional history exists Alcohol/Substance Use Screening 03/21/2025 03/21/2024 Depression Screening 03/21/2025 03/21/2024, 03/21/20 Tobacco Screening 03/21/2025 03/21/2024 SDOH Screening 04/02/2025 04/02/2024 Cervical Cancer Screening 04/23/2026 HPV/Cotest 04/23/2026 04/23/2021 Dental X-Ray: Full Mouth 06/22/2026 024, 12/19/2015, 02/02/2011 Colorectal Cancer Screening 05/03/2027 FIT DNA/Cologuard 05/03/2027 05/03/2024 Lipid Panel 03/21/2029 03/21/2024, 033 , 07/14/2020 Hepatitis C Screening Completed 07/29/2021 Influenza [...] patient's age to complete this topic Meningococcal B Vaccine Aged Out No l onger eligible based on patient's age to complete [...] Procedure Name Priority Date/Time Associated Diagnosis Comments CT CHEST WO CONTRAST Routine 07/27/2024 1:21 PM EDT LAB COLOGUARD?? COLON CANCER SCREEN Routine 05/03/2024 [...] Recently Relevant to Health Maintenance Results * CT Chest w/o Contrast (07/27/2024 1:21 PM EDT) Anatomical Region Laterality Modality Body, Chest Computed Tomogra phy 07/27/2024 1:21 PM EDT Narrative 07/27/2024 3:36 PM EDT ? [facility] ?[address] ?[place] [address] ? CT Scan Report ? Signed ? Patient: Nazia Garcia ?MR#: [id number] ?? 6 ? : 1960 ?Acct:[id number] ? Age/Sex: 63 / F ?ADM Date: 03/28/25 ? Loc: HO.CT ? Attending Dr: Avtar Jimenez MD ? Ordering Physician: Avtar Jimenez MD ?? Date of Service: 07/27/24 ?? Procedure(s): CT chest wo IV con ?? Accession Number(s): [id number] ? cc: Jia Greenwood; Avtar Jimenez MD ? Report Number: ?? [id number]: Total DLP = ??129.00 mGy-cm ?? EXAMINATION: ?? CT CHEST WITHOUT CONTRAST ? CLINICAL INFORMATION: ?? Pulmonary nodules. ? COMPARISON: ?? April 14, 2023. ? TECHNIQUE: ?? Multidetector volumetric CT imaging of the chest was done. Axial MIP ?? volume rendering provided. Sagittal and coronal reformatted images were ?? obtained. ? This CT examination was performed using dose optimization techniques as ?? appropriate, variously including the following: ?? *Automated exposure control ?? *Adjustment of mA and/or kV according to patient size (this includes ?? techniques or standardized protocols for targeted exams where dose is ?? matched to indication/reason for exam; i.e. extremities or head) ?? *Use of iterative reconstruction technique ?? DLP: 129 mGy centimeter. ? FINDINGS: ? INCLUSION INTERNSHIP: No hyperinflation. Large body habitus. ? LUNGS: Bilateral, a few, scattered, nonspecific, less than 4 mm ?? noncalcified subpleural nodules, the largest in the right middle lung ?? lobe. No bronchiectasis. No honeycombing. Respiratory airways is ?? patent. ? MEDIASTINUM: No lymphadenopathy. No aneurysm, thoracic aorta. No ?? pericardial effusion. Heart is not enlarged. Mild calcified plaque in ?? the mitral valve. Mild calcified plaque in the inferior aortic arch. ? CORONARY ARTERY CALCIFICATION: None visualized on this study. ? PLEURA: No pleural effusion. No pneumothorax. ? AXILLA: Nonspecific prominent 1.3 cm lymph node, left axilla. ? UPPER ABDOMEN: Focal calcification distal splenic artery near the ?? splenic hilum. Contracted gallbladder. No nodular lesions in the ?? adrenal glands. ? OSSEOUS STRUCTURES: S-shaped curvature of the thoracic spine. Mild ?? multilevel thoracic and upper lumbar spondylosis. No acute fracture or ?? gross listhesis. No lytic or cystic lesions. ? CT/CT chest wo IV con ?? IMPRESSION: ?? Nonspecific subcentimeter noncalcified subpleural pulmonary nodules, ?? largest right middle lung lobe. Stable. ? Fleischner guidelines were followed. ? Electronically signed by: ??George Diaz MD ??07/27/2024 03:32 PM ?? EDT RP ? Dictated By: ?George Miles MD ? Signed By: ?<Electronically signed by George Kramer MD in OV> ? 07/27/24 1532 ? DD/ 1321 ? TD/TT: 07/27/24 1330 ? Research Nutritionist: ? Procedure Note Donotuseinterpreter, Image - 07/27/[address] [place] [address] [address] Scan Report Signed Patient: Nazia Garcia [facility]#: [id number] 6 : 2Acct:[id number] Age/Sex: 63 / FADM Date: 07/27/24 Loc: HO.CT Attending Dr: Avtar Jimenez MD Ordering Physician: Avtar Jimenez MD Date of Service: 07/27/24 Procedure(s): CT chest wo IV con Accession Number(s): [id number] cc: Jia Greenwood; Avtar Jimenez MD Report Number: [id number]: Total DLP = 129.00 mGy-cm EXAMINATION: CT CHEST WITHOUT CONTRAST CLINICAL INFORMATION: Pulmonary nodules. COMPARISON: April 14, 2023. TECHNIQUE: Multidetector volumetric CT imaging of the chest was done. Axial MIP volume rendering provided. Sagittal and coronal reformatted images were obtained. This CT examination was performed using dose optimization techniques as appropriate, variously including the following: *Automated exposure control *Adjustment of mA and/or kV according to patient size (this includes techniques or standardized protocols for targeted exams where dose is matched to indication/reason for exam; i.e. extremities or head) *Use of iterative reconstruction technique DLP: 129 mGy centimeter. FINDINGS: INCLUSION INTERNSHIP: No hyperinflation. Large body habitus. LUNGS: Bilateral, a few, scattered, nonspecific, less than 4 mm noncalcified subpleural nodules, the largest in the right middle lung lobe. No bronchiectasis. No honeycombing. Respiratory airways is patent. MEDIASTINUM: No lymphadenopathy. No aneurysm, thoracic aorta. No pericardial effusion. Heart is not enlarged. Mild calcified plaque in the mitral valve. Mild calcified plaque in the inferior aortic arch. CORONARY ARTERY CALCIFICATION: None visualized on this study. PLEURA: No pleural effusion. No pneumothorax. AXILLA: Nonspecific prominent 1.3 cm lymph node, left axilla. UPPER ABDOMEN: Focal calcification distal splenic artery near the splenic hilum. Contracted gallbladder. No nodular lesions in the adrenal glands. OSSEOUS STRUCTURES: S-shaped curvature of the thoracic spine. Mild multilevel thoracic and upper lumbar spondylosis. No acute fracture or gross listhesis. No lytic or cystic lesions. CT/CT chest wo IV con IMPRESSION: Nonspecific subcentimeter noncalcified subpleural pulmonary nodules, largest right middle lung lobe. Stable. Fleischner guidelines were followed. Electronically signed by: George Diaz MD 07/27/2024 03:32 PM EDT RP Dictated By: George Miles MD Signed By: <Electronically signed by George Kramer MDin OV> 07/27/24 1532 DD/ 1321 TD/TT: 07/27/24 1330 Research Nutritionist: [facility] External Provider IMG CT PROCEDURES Final Result * Cologuard?? colon cancer screening (05/03/2024 9:00 AM EST) Cologuard Result Negative Negative 05/10/19 12:55 AM EST [facility] (IA #:[id number]) Comment: NEGATIVE TEST RESULT. A negative Cologuard [...] screened with both Cologuard and colonoscopy. (Shawn Henriquez, N Engl J Med 2014;370(14):1286- 1297) The normal value (reference range) for this assay is negative. COLOGUARD RE-SCREENING RECOMMENDATION: Periodic colorectal cancer screening is an important part of preventive healthcare for asymptomatic individuals at average risk for colorectal cancer. ??Following a negative Cologuard result, the [place] [employer] and U.S. Multi-Society Task Force screening guidelines recommend a Cologuard re-screening interval of 3 years. References: [place] [employer] Guideline for Colorectal Cancer Screening: https://www.cancer.org/cancer/yurop-ifyzqb-agvtdg/ggsgdhcxa-gqcwvbazx-qcnibzd/ac s-rec ommendations.html.; Blake DK, Lesli MONDRAGON, Omid GonzalezK, Colorectal Cancer Screening: Recommendations for Physicians and Patients from the U.S. Multi-Society Task Force on Colorectal Cancer Screening , Am J Gastroenterology 2017; 112:7981-6858. TEST DESCRIPTION: Composite algorithmic analysis of stool [...] screened with both Cologuard and colonoscopy. (Shawn Henriquez, N Engl J Med 2014;370(14):3196-4791.) Cologuard may produce a false negative or false positive result (no colorectal cancer or precancerous polyp present at colonoscopy follow up). A negative Cologuard test result does not guarantee the absence of CRC or advanced adenoma (pre-cancer). The current Cologuard screening interval is every 3 years. ([place] [employer] and U.S. Multi-Society Task Force). Cologuard performance data in a 10,000 patient pivotal study using colonoscopy as the reference method can be accessed at the following location: www.Bringg/results. Additional description of the Cologuard test process, warnings and precautions can be found at www.[employer].com. Stool specimen (specimen) 05/03/2024 9:00 AM EST 05/04/2024 1:00 PM EST Jia Greenwood [facility]ST[facility] ANGIE FAULKNER Final Result [facility] (CLIA #:[id number]) [place] [address] [place] [address], * Lipid Panel, Standard (03/21/2024 11:51 AM EST) Triglycerides 129 <150 mg/dL [facility] Comment:Desirable Triglyceri de: less than 150 mg/dLBorderline High Triglyceride 150-199 mg/dLHigh Triglyceride: 200-499 mg/dLVery High Triglyceride: greater than or equal to 5OO mg/dL Cholesterol 176 <200 mg/dL [facility] Comment:Desirable Cholestero l: less than 200 mg/dLBorderline High Cholesterol: 200-239 mg/dLHigh Cholesterol: greater than 239 mg/dL LDL Cholesterol Calculated 90 <100 mg/dL [facility] Comment:Desirable LDL: less than 100 mg/dLNear Optimal/Above Optimal LDL: 110- 129 mg/dLBorderline High LDL: 130-159 mg/dLHigh LDL: 160-189 mg/dLVery High LDL: greater than or equal to 190 mg/dL HDL Cholesterol 61 >40 mg/dL [facility] Comment:Desirable HDL: great er than 40 mg/dL Note: This HDL assay may give artificially low results in patients with liver disease. Blood Venous blood specimen / Unknown 03/21/2024 11:51 AM EST 03/21/2024 1:16 PM EST us Jia Greenwood MESSAGE CLERK LAB BLOOD ORDERABLES Final Res ult [facility] [address] [place] [address] [phone] * BI Mammogram Screening Tomosynthesis Bilateral (07/22/2023 1:15 PM EDT) Anatomical Region Laterality Modality Breast Bilateral Mammography 07/22/2023 1:15 PM EDT Narrative 08/09/2023 10:54 AM EDT ? [facility] ? [address] ?[place] [address] ? Mammography Report ? Signed ? Patient: Nazia Garcia ?MR#: [id number] ?? 6 ? : 1960 ?Acct:[id number] ? Age/Sex: 62 / F ?ADM Date: 07/21/ ? Loc: HO.MAMMO ? Attending Dr: Jia Greenwood MESSAGE CLERK ? Ordering Physician: Timo,Jia MESSAGE CLERK ?Results: 2Benig ?? n Findings ? Date of Service: 07/21/ ?Follow Up: 1 Year From Orig ?? inal Mammogram ? Procedure(s): MM tomosynthesis screening BI ?? Accession Number(s): [id number] ? cc: Timo,Jia MESSAGE CLERK ? EXAMINATION: ?? MM SCREENING DIGITAL BREAST [...] signed by Manuel Becker MD in OV> ?08/09/231 ? DD/ 1315 ? TD/TT: ? Research Nutritionist: ? Procedure Note Chucho Becker - 08/09/2023 [facility] [address] [place], [place] [address] Mammography Report Signed Patient: Nazia Garcia [facility]#: [id number] 6 : 2Acct:[id number] Age/Sex: 62 / FADM Date: 07/22/23 Loc: HO.MAMMO Attending Dr: Jia PORTERP Ordering Physician: Jia GreenwoodPResults: 2Benig n Findings Date of Service: 07/22/23Follow Up: 1 Year From Orig inal Mammogram Procedure(s): MM tomosynthesis screening BI Accession Number(s): [id number] cc: Jia Greenwood MESSAGE CLERK EXAMINATION: MM SCREENING DIGITAL BREAST TOMOSYNTHESIS, BILATERAL [...] in OV> 08/09/23 1051 DD/ 1315 TD/TT: Research Nutritionist: Jia Phalen MESSAGE CLERK IMG BI PROCEDURES Final Result * (ABNORMAL) HEPATITIS C AB W/REFL TO HCV RNA, QN, PCR (07/29/2021 9:42 AM EDT) HEPATITIS C ANTIBODY REACTIVE( A) NON-REACT [facility] INDEX 11.80(H) <1.00 [facility] Comment: ?? Based on this result, the sample will be tested for HCV RNA by a Nucleic Acid Amplification Test (NAAT) to determine if the patient has a current active infection. ?? 07/29/2021 9:42 AM EDT us Miriam Saul NP HISTORICAL/NON ORDERABLE LABS F inal Result [facility] [address] [place] [address], * THINPREP TIS PAP AND HPV mRNA E6/E7, CT/NG, TRICH (04/23/2021 11:12 AM EST) Chlamydia trachomatis RNA, TMA, Urogenital NOT DETECTED NOT DETECTED [facility] Clinical Information: None given [facility] COMMENT [facility] Comment: The analytical performance characteristics of this assay, when used to test SurePath(TM) specimens have been determined by [employer]. The modifications have not been cleared or approved by the FDA. This assay has been validated pursuant to the CLIA regulations and is used for clinical purposes. ?? For additional information, please refer to https://education.Ausra/faq/TNH267 (This link is being provided for information/ [...] has been evaluated with computer assisted technology. [facility] Daycare Manager: [facility] Comment: ED, CT(ASCP) CT screening location: ?? [facility] ?? [address] [place] [address] ?? [place], [place] [address] HPV nRNA E6/E7 Not Detected Not Detected [facility] Comment: Methodology: Hydraulic Modeling Engineer-Mediated Amplification This assay detects E6/E7 viral messenger RNA (mRNA) from 14 high-risk HPV types (16,18,31,33,35,39,45,51,52,56,58,59,66,68). ? The analytical performance characteristics of this assay have been determined by [employer]. The modifications have not been cleared or approved by the FDA. This assay has been validated pursuant to the CLIA regulations and is used for clinical purposes. ?? For additional information, please refer to http://[employer]ageSciences.Ausra/faq/VTU468g3 (This link if provided for information/ educational [...] of this assay have been determined by [employer]. The modifications have not been cleared or approved by the FDA. This assay has been validated pursuant to the CLIA regulations and is used for clinical purposes. ?? For additional information, please refer to http://education.Ausra/ faq/Trichomonastma (This link is being provided for information/ educational purposes only.) ?? NO COLLECTION DATE RECEIVED. WE HAVE USED THE DATE THE SPECIMEN WAS RECEIVED BY THIS LABORATORY THE COLLECTION DATE. IF THIS IS INCORRECT, PLEASE CONTACT CLIENT SERVICES. PHONE NUMBER: ?? 04/23/2021 11:1 2 AM EST Miriam Saul NP LAB PATHOLOGY ORDERABLES Final Result [facility] [address] from Last 3 Months or Most Recently [place]vant [place] [address] [place] [address] 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
== END 2024-09-27 11:43 | disposition home or self-care (01) ==
LOC: HO.MAMMO 11:42
PROVIDERS: PCP Registered Nurse; Visit Provider Registered Nurse
DX: Z12.31 Encounter for screening mammogram for malignant neoplasm of breast (principal)
CPT/HCPCS: 77063; 77067

== ENCOUNTER → 2024-09-27 12:30 | Outpatient (BNV) | payer MEDICAID, SELFPAY | PROVIDERS: PCP Registered Nurse; Visit Provider Internal Medicine | DX: Z12.31 Encounter for screening mammogram for malignant neoplasm of breast (principal) | CPT/HCPCS: 77063; 77067 ==

== ENCOUNTER 2024-10-05 10:45 | Outpatient (REF) | payer MEDICAID, SELFPAY ==
--- NOTE | ~2024-10-05 | US_ITS ---
EXAMINATION: US ABDOMEN HISTORY: Gallbladder polyp TECHNIQUE: Real-time grayscale ultrasound imaging of the abdomen was performed and images were reviewed. COMPARISON: Comparison is made with the prior examination dated 06/27/2023. FINDINGS: Liver: The right lobe of the liver measures 13.6 cm in size. The left lobe of the liver measures 8.8 cm in size. The liver demonstrates normal homogeneous echotexture. No focal mass or intrahepatic biliary ductal dilatation is identified. There is normal hepatopedal flow in the portal vein. Gallbladder and biliary tree: Again seen are polyps within the gallbladder measuring up to 5 mm in size. The gallbladder is otherwise unremarkable, without evidence of calculi, wall thickening, or pericholecystic fluid. There is no sonographic Thomas sign. The common bile duct is normal in caliber measuring 4 mm. Kidneys: The right kidney measures 9.4 cm in length. The left kidney measures 9.4 cm in length. The kidneys are unremarkable, without evidence of masses, hydronephrosis, or calculi. Pancreas: The pancreatic head, neck, and body are unremarkable. The pancreatic tail is obscured by bowel gas. Spleen: The spleen is normal in size and contour, measuring 9.4 cm in length. Abdominal aorta and inferior vena cava: The visualized portions of the abdominal aorta and inferior vena cava are normal in caliber. There is no free fluid in the abdomen. US/US abdomen complete IMPRESSION: Gallbladder polyps without change. Otherwise unremarkable abdominal ultrasound. Electronically signed by: Isaias Dickens MD 10/05/2024 12:38 PM EDT
--- OUTSIDE RECORDS SUMMARY | 2024-10-05 11:36 | XMS_ITS | Clinical Summary ---
Author Organization [employer] Address [address] [place] [address] Care Team Providers Care Governor Assembler Name Role Phone Jia Greenwood ZHAO Primary Care Provider [phone] Allergies No known active allergies Medications Diclofenac [...] um Nitrate 1.1-5 % pasteIndications :Dental caries [place] teeth for 2 minutes, morning and night. [...] COPD. ?? [place] [facility] [place] Dr. Jimenez ?? Apr 2023: [...] Overview (06/08/2023): -[place] [facility] [place] - Dr. Swift -Noted originally in [...] ablation -Previously [place] Dr. Jamison Almaraz [facility] [place]Pt asymptomatic -Continues on metoprolol 50mg daily [...] Type Department Care Team Description 08/16/2024 Telephone [facility] [address] [place] [id number] Jia Greenwood FNP Results 08/03/2024 Telephone [facility] [address] [place] [address] Jia Greenwood FNP Results 07/27/2024 Orders Only [facility] External Provider, [facility] 07/23/2024 Telephone [facility] [address] [place] [address] Jia Greenwood FNP March 07/23/2024 Travel 07/18/2024 Telephone [facility] [address] [place] [address] Jia Greenwood FNP PT1 07/13/2024 Population Health Risk Score [facility] () Department [address] [place] [id number] Provider, Population Health Generic from Last [...] Description 12/26/2024 11:15 AM EDT Office Visit [facility] [address] [place] [address] Jia Greenwood, REHAB CARE ASSISTANT [address] [place] [address] Health Maintenance Due Date Last Done Comments [...] EDT Narrative 07/27/2024 3:36 PM EDT ? [facility] ?[address] ?[place] [address] ? CT Scan Report ? Signed ? Patient: Nazia Garcia ?MR#: [id number] ?? 6 ? : 1960 ?Acct:[id number] ? Age/Sex: 63 / F ?ADM Date: 03/28/25 ? Loc: HO.CT ? Attending Dr: Avtar Jimenez MD ? Ordering Physician: Avtar Jimenez MD ?? Date of Service: 07/27/24 ?? Procedure(s): CT chest wo IV con ?? Accession Number(s): [id number] ? cc: Jia Greenwood; Avtar Jimenez MD ? Report Number: ?? [id number]: Total DLP = ??129.00 mGy-cm ?? EXAMINATION: [...] DLP: 129 mGy centimeter. ? FINDINGS: ? FAN MAIL EDITOR: No hyperinflation. Large body habitus. ? LUNGS: [...] were followed. ? Electronically signed by: ??George iDaz MD ??07/27/2024 03:32 PM ?? EDT RP ? Dictated By: ?George Miles MD ? Signed By: ?<Electronically signed by George Kramer MD in OV> ? 07/27/24 1532 ? DD/ 1321 ? TD/TT: 07/27/24 1330 ? Marketing Planning Manager: ? Procedure Note Donotuseinterpreter, Image - 07/27/[address] [place] [address] [address] Scan Report Signed Patient: Nazia Garcia [facility]#: [id number] 6 : 2Acct:[id number] Age/Sex: 63 / FADM Date: 07/27/24 Loc: HO.CT Attending Dr: Avtar Jimenez MD Ordering Physician: Avtar Jimenez MD Date of Service: 07/27/24 Procedure(s): CT chest wo IV con Accession Number(s): [id number] cc: Jia Greenwood; Avtar Jimenez MD Report Number: [id number]: Total DLP = 129.00 mGy-cm EXAMINATION: CT [...] reconstruction technique DLP: 129 mGy centimeter. FINDINGS: FAN MAIL EDITOR: No hyperinflation. Large body habitus. LUNGS: Bilateral, [...] 07/27/24 1532 DD/ 1321 TD/TT: 07/27/24 1330 Marketing Planning Manager: [facility] External Provider IMG CT PROCEDURES Final Result * Cologuard?? colon cancer screening (05/03/2024 9:00 AM EST) Cologuard Result Negative Negative 05/10/19 12:55 AM EST mktg (IA #:[id number]) Comment: NEGATIVE TEST RESULT. A negative Cologuard [...] cancer. ??Following a negative Cologuard result, the [employer] Cancer Society and U.S. Multi-Society Task Force screening guidelines recommend a Cologuard re-screening interval of 3 years. References: [employer] Society Guideline for Colorectal Cancer Screening: https://www.cancer.org/cancer/cvuwp-yxcuck-egdlck/ixqteqarp-aqwgchowo-afyjnph/ac s-rec ommendations.html.; Blake DK, Lesli MONDRAGON, Omid GonzalezK, Colorectal Cancer Screening: Recommendations for Physicians and Patients from the U.S. Multi-Society Task Force on Colorectal Cancer Screening , Am J Gastroenterology 2017; 112:7849-5417. TEST DESCRIPTION: Composite algorithmic analysis of stool [...] colonoscopy. (Shawn Henriquez, N Engl J Med 2014;370(14):2677-0415.) Cologuard may produce a false negative or false positive result (no colorectal cancer or precancerous polyp present at colonoscopy follow up). A negative Cologuard test result does not guarantee the absence of CRC or advanced adenoma (pre-cancer). The current Cologuard screening interval is every 3 years. ([employer] Cancer Society and U.S. Multi-Society Task Force). Cologuard performance data in a 10,000 patient pivotal study using colonoscopy as the reference method can be accessed at the following location: www.[employer]/results. Additional description of the Cologuard test process, warnings and precautions can be found at www.[employer]osphere[employer]Espinelard.com. Stool specimen (specimen) 05/03/2024 9:00 AM EST 05/04/2024 1:00 PM EST Jia Greenwood [facility] ANGIE FAULKNER Final Result mktg (CLIA #:[id number]) [place] [address] [place] [address], * Lipid Panel, Standard (03/21/2024 11:51 AM EST) Triglycerides 129 <150 mg/dL [facility] Comment:Desirable Triglyceri de: less than 150 mg/dLBorderline High Triglyceride 150-199 mg/dLHigh Triglyceride: 200-499 mg/dLVery High Triglyceride: greater than or equal to 5OO mg/dL Cholesterol 176 <200 mg/dL [facility] Comment:Desirable Cholestero l: less than 200 mg/dLBorderline High Cholesterol: 200-239 mg/dLHigh Cholesterol: greater than 239 mg/dL LDL Cholesterol Calculated 90 <100 mg/dL [facility] Comment:Desirable LDL: less than 100 mg/dLNear Optimal/Above Optimal LDL: 110- 129 mg/dLBorderline High LDL: 130-159 mg/dLHigh LDL: 160-189 mg/dLVery High LDL: greater than or equal to 190 mg/dL HDL Cholesterol 61 >40 mg/dL [facility] Comment:Desirable HDL: great er than 40 mg/dL Note: This HDL assay may give artificially low results in patients with liver disease. Blood Venous blood specimen / Unknown 03/21/2024 11:51 AM EST 03/21/2024 1:16 PM EST us Jia Greenwood REHAB CARE ASSISTANT LAB BLOOD ORDERABLES Final Res ult [facility] [address] [place] [address] [phone] * BI Mammogram Screening Tomosynthesis Bilateral (07/22/2023 1:15 PM EDT) Anatomical Region Laterality Modality Breast Bilateral Mammography 07/22/2023 1:15 PM EDT Narrative 08/09/2023 10:54 AM EDT ? [facility] ? [address] ?[place] [address] ? Mammography Report ? Signed ? Patient: Nazia Garcia ?MR#: [id number] ?? 6 ? : 1960 ?Acct:[id number] ? Age/Sex: 62 / F ?ADM Date: 07/21/ ? Loc: HO.MAMMO ? Attending Dr: Jia Greenwood REHAB CARE ASSISTANT ? Ordering Physician: Timo,Jia REHAB CARE ASSISTANT ?Results: 2Benig ?? n Findings ? Date of Service: 07/21/ ?Follow Up: 1 Year From Orig ?? inal Mammogram ? Procedure(s): MM tomosynthesis screening BI ?? Accession Number(s): [id number] ? cc: Timo,Jia REHAB CARE ASSISTANT ? EXAMINATION: ?? MM SCREENING DIGITAL BREAST [...] ?08/09/231 ? DD/ 1315 ? TD/TT: ? Marketing Planning Manager: ? Procedure Note Chucho Becker - 08/09/2023 [facility] [address] [place], [place] [address] Mammography Report Signed Patient: Nazia Garcia [facility]#: [id number] 6 : 2Acct:[id number] Age/Sex: 62 / FADM Date: 07/22/23 Loc: HO.MAMMO Attending Dr: Jia PORTERP Ordering Physician: Jia GreenwoodPResults: 2Benig n Findings Date of Service: 07/22/23Follow Up: 1 Year From Orig inal Mammogram Procedure(s): MM tomosynthesis screening BI Accession Number(s): [id number] cc: Jia Greenwood REHAB CARE ASSISTANT EXAMINATION: MM SCREENING DIGITAL BREAST TOMOSYNTHESIS, BILATERAL [...] in OV> 08/09/23 1051 DD/ 1315 TD/TT: Marketing Planning Manager: Jia Phalen REHAB CARE ASSISTANT IMG BI PROCEDURES Final Result * (ABNORMAL) HEPATITIS C AB W/REFL TO HCV RNA, QN, PCR (07/29/2021 9:42 AM EDT) HEPATITIS C ANTIBODY REACTIVE( A) NON-REACT ROSA [facility] INDEX 11.80(H) <1.00 [facility] Comment: ?? Based on this result, the sample will be tested for HCV RNA by a Nucleic Acid Amplification Test (NAAT) to determine if the patient has a current active infection. ?? 07/29/2021 9:42 AM EDT us Miriam Saul NP HISTORICAL/NON ORDERABLE LABS F inal Result [facility] [address] [place] [address], * THINPREP TIS PAP AND HPV mRNA E6/E7, CT/NG, TRICH (04/23/2021 11:12 AM EST) Chlamydia trachomatis RNA, TMA, Urogenital NOT DETECTED NOT DETECTED [facility] Clinical Information: None given [facility] COMMENT [facility] Comment: The analytical performance characteristics of this assay, when used to test SurePath(TM) specimens have been determined by [employer]. The modifications have not been cleared or approved by the FDA. This assay has been validated pursuant to the CLIA regulations and is used for clinical purposes. ?? For additional information, please refer to https://education.[employer]/faq/BUQ006 (This link is being provided for information/ [...] has been evaluated with computer assisted technology. [facility] [employer] Process Improvement Analyst: [facility] Comment: ED, CT(ASCP) CT screening location: ?? [facility] ?? [address] [place] [address] ?? [place], [place] [address] HPV nRNA E6/E7 Not Detected Not Detected [facility] Comment: Methodology: Hris Specialist-Mediated Amplification This assay detects E6/E7 viral messenger RNA (mRNA) from 14 high-risk HPV types (16,18,31,33,35,39,45,51,52,56,58,59,66,68). ? The analytical performance characteristics of this assay have been determined by [employer]. The modifications have not been cleared or approved by the FDA. This assay has been validated pursuant to the CLIA regulations and is used for clinical purposes. ?? For additional information, please refer to http://VisualOn.[employer]/faq/VCG234y3 (This link if provided for information/ educational [...] of this assay have been determined by [employer]. The modifications have not been cleared or approved by the FDA. This assay has been validated pursuant to the CLIA regulations and is used for clinical purposes. ?? For additional information, please refer to http://education.[employer]/ faq/Trichomonastma (This link is being provided for information/ educational purposes only.) ?? NO COLLECTION DATE RECEIVED. WE HAVE USED THE DATE THE SPECIMEN WAS RECEIVED BY THIS LABORATORY THE COLLECTION DATE. IF THIS IS INCORRECT, PLEASE CONTACT CLIENT SERVICES. PHONE NUMBER: ?? 04/23/2021 11:1 2 AM EST Miriam Saul NP LAB PATHOLOGY ORDERABLES Final Result [facility] [address] from Last 3 Months or Most Recently [place]vant [place] [address] [place] [address] [facility] [address] Advance Directives Documents on File Type Date Recorded Patient Shade Matcher Expl anation Advance Directives and Livin g Will 04/02/2022 1:13 PM Care Teams Governor Assembler Relationship Specialty Start Date End Date Jia Greenwood FNP [address] [place] [address] PCP - General Family Medicine 04/02/22
== END 2024-10-05 10:46 | disposition home or self-care (01) ==
LOC: HO.US 10:45
PROVIDERS: PCP Registered Nurse; Visit Provider Internal Medicine Gastroenterology
DX: K82.4 Cholesterolosis of gallbladder (principal)
CPT/HCPCS: 76700

== ENCOUNTER → 2024-10-05 10:49 | Outpatient (BNV) | payer MEDICAID, SELFPAY | PROVIDERS: PCP Registered Nurse; Visit Provider Radiology Diagnostic Radiology | DX: K82.8 Other specified diseases of gallbladder (principal) | CPT/HCPCS: 76700 ==